=== PATIENT | female | born 1940 | race Caucasian/White ===

== ENCOUNTER 2016-10-02 07:00 | Inpatient (IN) ==
--- NOTE | 2016-10-02 07:46 | Oncology History&Physical ---
History of Present Illness Chief complaint: Intractable nausea and vomiting and probable recurrent colon cancer History of present illness: Ms. 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 She has been treated on more than one occasion because of progression of disease. She was initially treated with FOLFOX and Folfiri along with Avastin. She received 3 courses of FOLFOX followed by 9 courses of Folfiri plus Avastin and then was switched to Avastin as a single agent with the last of this series of chemotherapy treatments being October 16, 2013. She continued Avastin as a single agent until she developed progression. She had evidence of progressive disease that took some time to manifest and started back on chemotherapy again consisting of 3 courses of FOLFOX beginning in November 2015 and switching to Folfiri 4 5 courses that she finished February. I have been following her since that time and when I saw her in my office earlier this week she was having some nausea and increasing abdominal distention and anorexia and a sense of fullness. At the time of that examination, I was concerned that she had progression of disease again. She had recently had a CT of the abdomen and pelvis that was done September 17, 2016 and compared to the most recent one of June 18, 2015. It suggested that she had progression of disease again. The CT report mentioned minimal nodular opacities within the anterior aspect of the right upper lobe that were felt to be due to atelectasis. There was no evidence of liver metastases but the patient had ascites and prominence of the peritoneal lining suggesting carcinomatosis. There were distended loops of bowel but contrast was seen throughout the colon. My physical examination done a few days after that report were certainly worrisome for recurrence of the colon cancer. She is not been able to eat anything or drink any significant amount of liquids the last 3 days and so I am admitting her now, and I am ordering another CT but I am proceeding with Folfiri again because of the fact that it is fairly evident that she has progression of disease. I am getting the repeat CT scan as a baseline. She has had problems with hypokalemia while receiving treatment and also hypomagnesemia while on chemotherapy but she tolerated the Avastin fairly well and had no great deal of toxicity from it including no significant proteinuria. 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 Her mother also had cancer of unknown type. Social history: She is . She has never smoked. ROS Gen.: Eyes: No history of chronic disease, infections or visual loss. ENT: No history of chronic infections, epistaxis, chronic sore throat Lungs: No history of asthma, emphysema, hemoptysis, chronic pleurisy or long- term or chronic infections Cardiovascular: No history of angina, coronary artery disease, congestive heart failure, cardiovascular surgery or DVT/VTE GI: She is having bowel movements normally but she is had intractable nausea and vomiting for the past 72 hours or slightly more. No history of upper or lower GI bleeding, melena, dysphagia, odynophagia, liver disease, gallbladder disease or pancreatic disease. : No history of kidney stones, chronic kidney infections or hematuria. She is postmenopausal Musculoskeletal: No history of chronic bone or joint pain or focal muscle atrophy or bone or joint deformity. Neurologic: She has a history of peripheral neuropathy related to oxalic paimiut no history of seizures, convulsions or paralysis. Psychiatric: No history of chronic psychiatric illness or psychiatric medications. Lymphatic: No history of significant or long-term lymphadenopathy Hematologic: No history of anemia, bleeding disorders or blood dyscrasias or long-term elevation or depression white cell count or petechiae. Skin: No history of chronic skin infections or rashes or significant skin lesions. Physical examination: General: The patient is thin and somewhat frail appearing but actually does not appear as acutely ill as her history and my examination and the CAT scan indicate. Eyes: Normal lids and conjunctivae. ENT: Her hearing is normal. Her oral mucosa and pharynx are normal. Her voice is clear. Neck: Her trachea is midline and she has no abnormalities of the thyroid gland or neck masses. Nodes: There is no submandibular, anterior or posterior adenopathy of the cervical chain, axillary adenopathy or supraclavicular adenopathy. Breasts: Normal by inspection and palpation Lungs: Normal breath sounds without rubs, rales or rhonchi. There is symmetrical unlabored chest motion with respiration. Cardiovascular: Her heart rhythm is regular without murmur, gallop or rub. There is no jugular venous distention, clubbing, cyanosis or edema. Abdomen: She has protuberance and fullness of her abdomen with apparent ascites and several palpable masses in the midline that could represent carcinomatosis. On comparing my examination to her CT, her loops of bowel are centered in the midline and this is probably what I am feeling. Musculoskeletal: There is no focal muscle atrophy or bone or joint deformity. Neurologic: Cranial nerves II through XII are intact. There are no focal neurologic deficits. Skin: I see no significant skin lesions or rashes. Impression: It is my impression that the patient once again has progression of her colon cancer and I am going to treat her with Folfiri and Cyramza this time. The dose of will be: Camptosar 250 mg IV daily 1 Leucovorin 600 mg IV day 1 5-FU 750 mg IV day 1 5-FU a total of 2000 mg IV over 42 hours Cyramza 400 mg IV on completion of 5-FU infusion. Secondary diagnoses include: Intractable nausea and vomiting secondary to recurrent colon cancer. Hypertensive cardiovascular disease Mild peripheral neuropathy GERD Osteoporosis Home Medications Medication Instructions Recorded Confirmed Type Cetirizine Tab [ZyrTEC Tab] 10 mg PO QAM 09/30/16 09/30/16 History Folic Acid/Mv,Iron,Min [One Daily 1 each PO QAM 09/30/16 09/30/16 History For Women Tablet] Glucosamine/D3/Boswellia Marilou 1 each PO QAM 09/30/16 09/30/16 History [Osteo Bi-Flex Tablet] Lisinopril 40 mg PO QAM 09/30/16 09/30/16 History Magnesium Oxide 400 mg PO BEDTIME 09/30/16 09/30/16 History Metoprolol Succinate 100 mg PO BEDTIME 09/30/16 09/30/16 History Ondansetron Odt Tab [Zofran Odt] 4 mg PO Q8H PRN #12 tablet 09/30/16 Rx Potassium Chloride 20 meq PO BID 09/30/16 09/30/16 History Pregabalin [Lyrica] 50 mg PO BEDTIME 09/30/16 09/30/16 History amLODIPine [Norvasc] 5 mg PO BEDTIME 09/30/16 09/30/16 History cloNIDine TAB [Catapres Tab] 0.1 mg PO BID 09/30/16 09/30/16 History Allergies Allergy/AdvReac Type Severity Reaction Status Date / Time Hydromorphone [From Dilaudid] AdvReac Severe Vomiting Verified 06/18/15 09:54 Medical,Surgical,& Family Hx - Medical History Gastrointestinal: History of: Gastrointestinal Cancer (adenocarcinoma) - Surgical History Abdominal Surgeries: Surgical HX of: Abdominal Surgery Reproductive Surgeries: Surgical HX of;: Hysterectomy - Social History Smoking Status: Never smoker Results - Labs CBC & BMP: 10/02/16 08:20
[2016-10-02] MEDS ORDERED: LOPERAMIDE 2 MG CAPSULE PO PRN ×3 (08:40→09:35)
[2016-10-02] MEDS ORDERED: ONDANSETRON 4 MG/2 ML VIAL IV PRN (08:40)
[2016-10-02] MEDS ORDERED: chlorproMAZINE INJ 50 MG in SODIUM CHLORIDE 0.9% 100 ML IV PRN (08:40)
[2016-10-02] MEDS ORDERED: ACETAMINOPHEN 325 MG TABLET PO PRN (08:40)
[2016-10-02] MEDS ORDERED: chlorproMAZINE 25 MG TABLET PO PRN (08:40)
[2016-10-02] MEDS ORDERED: guaiFENesin 200 MG/10 ML UDCUP PO PRN (08:40)
[2016-10-02] MEDS ORDERED: MYLANTA/LIDO VISC 2:1 300 ML BOTTLE SWISH/SPIT PRN (08:40)
[2016-10-02] MEDS ORDERED: MAGNESIUM HYDROXIDE SUSP 30 ML UDCUP PO PRN (08:40)
[2016-10-02] MEDS ORDERED: traMADol 50 MG TABLET PO PRN (08:40)
[2016-10-02] MEDS ORDERED: diphenhydrAMINE CAP 25 MG CAPSULE PO PRN (08:40)
[2016-10-02] MEDS ORDERED: LACTULOSE 20 GM/30 ML UDCUP PO PRN (08:40)
[2016-10-02] MEDS ORDERED: MYLANTA/LIDO VISC 2:1 300 ML BOTTLE SWISH/SWAL PRN (08:40)
[2016-10-02] MEDS ORDERED: BENZTROPINE 2 MG/2 ML AMP IV PRN (08:40)
[2016-10-02 08:55] LABS: Basophils % 0.3 % (0.0-0.8); Eosinophils # 0.1 10*3/uL (0.0-0.87); Eosinophils % 1.3 % (0.00-10.9); Hematocrit 33.5 VOL% (35.7-47.0); Immature Granulocytes % 0.4 %; Immature Granulocytes Absolute 0.04 #; Lymphocytes # 1.8 10*3/uL (1.4-4.0); Lymphocytes % 16.8 % (21.3-54.2); Mean Corpuscular HGB Conc 32.8 GM/DL (32-36); Mean Corpuscular Hemoglobin 31 PG (27-34); Mean Corpuscular Volume 93.1 FL (87-102); Mean Platelet Volume 9.5 FL (9.6-12.0); Monocytes # 0.8 10*3/uL (0.11-0.8); Monocytes % 7.2 % (1.7-12.7); Platelet Count 157 T/CUMM (130-400); Red Cell Distribution Width 16.3 % (9.3-17.3); White Blood Count 10.7 T/CUMM (4-12)
[2016-10-02 09:23] LABS: Albumin 2.5 G/DL (3.4-5.0); Bilirubin,Total 1.4 MG/DL (0.2-1.0); Calcium 8.5 MG/DL (8.5-10.1); Magnesium 1.8 MG/DL (1.8-2.4); Osmolality,Calculated 282.3 MOS/KG (273-304); Potassium 3.9 MMOL/L (3.5-5.1); Total Protein 5.4 G/DL (6.4-8.3); Uric Acid 4.2 MG/DL (2.6-6.0)
[2016-10-02] MEDS ORDERED: DICYCLOMINE 20 MG TABLET PO PRN (09:35)
[2016-10-02] MEDS ORDERED: POLYETHYLENE GLYCOL POWDER 17 GM PACK PO PRN (09:35)
[2016-10-02] MEDS ORDERED: GRANISETRON 1 MG/1 ML VIAL IV SCH (10:00)
[2016-10-02] MEDS: POTASSIUM GLUCONATE 500 MG TABLET PO SCH ×2 (10:27→21:16)
[2016-10-02] MEDS: MULTIVITAMIN (CENTRUM) TABLET PO SCH (10:27)
[2016-10-02] MEDS: CETIRIZINE 10 MG TABLET PO SCH (10:28)
[2016-10-02] MEDS: CYANOCOBALAMIN 500 MCG TABLET PO SCH (10:28)
[2016-10-02] MEDS: cloNIDine 0.1 MG TABLET PO SCH ×2 (10:28→21:16)
[2016-10-02] MEDS: CHOLECALCIFEROL 1,000 UNIT TABLET PO SCH (10:28)
[2016-10-02] MEDS: PANTOPRAZOLE 40 MG TABLET PO SCH (10:28)
[2016-10-02 10:42] LABS: Cancer Antigen 19-9 23.3 U/ML (0-37); Carcinoembryonic Antigen 5.4 NG/ML (0.0-5.0)
--- NOTE | 2016-10-02 11:02 | CT Report ---
CT chest abdomen pelvis w con Indication: Nausea and vomiting. History of recurrent colon cancer. Comparison: None. Technique: CT of the chest, abdomen, and pelvis was performed following the administration of intravenous contrast. The CT examination was performed using one or more of the following dose reduction techniques: Automatic exposure control, adjustment of the mA and kV according to patient size, or iterative reconstruction techniques. Findings: CHEST: Soft tissues of the lower neck including the thyroid gland demonstrate no significant abnormalities. Fusiform enlargement of the ascending aorta measures 4.1 cm in transverse dimension. 3 vessel arch anatomy is present. The heart size is normal. The esophagus demonstrates no significant abnormality. No adenopathy is noted within the axilla. Right hilar lymph nodes measure 8.8 mm in short axis dimension. Peribronchial soft tissue attenuation within the right lower lobe image 67 is noted within the right lower lobe measuring 2.3 cm in AP dimension and 1.9 cm in transverse dimension. This tracks along the bronchi and extends into the major fissure possibly crossing the major fissure into the right middle lobe. Additional areas of soft tissue attenuation/airspace attenuation noted centrally within the right middle lobe adjacent the lateral subsegmental bronchi. These areas have developed since the comparison study. Additional groundglass attenuation and coarsened interstitial markings are noted within the right lower lobe which may in part reflect atelectasis. Infectious process is not excluded. Noncalcified pulmonary nodule left upper lobe image #33 measures 2 to 3 mm in size and has no change. Some nodular airspace attenuation is located within the right upper lobe image #33. Trace pleural effusion is present on the right. Bony structure of the chest demonstrates no acute findings as well as no specific evidence of osseous metastatic disease. Soft tissues and musculature of the chest wall demonstrate no significant abnormalities. ABDOMEN/PELVIS: A large amount of ascites is noted within the abdomen. Overall amount has probably changed little since comparison study. Gallbladder is contracted and/or demonstrates diffuse wall thickening which is a nonspecific finding in the setting of ascites. The appearance of the liver, spleen, pancreas, adrenal glands, and kidneys is stable. Stomach and duodenum demonstrated no specific abnormality. Within the right lower quadrant adjacent suture line, image #170, there is a rounded focus of mixed attenuation slightly higher in attenuation than the adjacent anterior fluid collection/ascites collection which abuts the margin. This has suggested enhancement of serosa and mucosa in the delayed phase and suggest possible segment of bowel in which there is bowel wall thickening measuring up to 12.8 mm. This particular segment of bowel when compared to the previous study appears to represent large bowel. The anterior serosal surface of this bowel segment forms the posterior boundary of one of the larger fluid collections within the abdomen. Intrapelvic contents with exception of hysterectomy demonstrate no significant abnormality. No adenopathy is identified within the abdomen and pelvis. Bony structure of the lumbar spine and pelvis demonstrate no acute findings. No specific evidence of osseous metastatic disease is demonstrated. Soft tissues and musculature of the body wall demonstrate no acute findings. No enhancing peritoneal masses can be identified. Impression: 1.A large amount of ascites is again demonstrated. There is a possible focal to short segment of bowel wall thickening within the lower right abdomen adjacent what appears to represent suture line in which the bowel wall could measure up to 13 mm. This particular segment could simply reflect fluid-filled nonopacified bowel, but there does appear to be both mucosal enhancement and serosal enhancement in the delayed phase, suggesting bowel wall thickening. 2. Airspace attenuation and/or soft tissue attenuation within the right lower lobe and right middle lobe has differential considerations including infection with focal consolidation, metastatic disease, follow-up is recommended. 3. Trace pleural effusion is noted on the right. 4. Findings compatible with prior granulomatous disease. 10/02/2016 10:45 AM PROCEDURE INTERPRETED AT [facility] DEPARTMENT OF RADIOLOG[facility] Final Report Signed by: Dr. Derek Zuleta
[2016-10-02] MEDS: DEXT 5% NACL 0.45% KCL 20 MEQ 20 MEQ/1,000 ML BAG IV SCH ×2 (11:08→19:10)
[2016-10-02 11:45] LABS: Apearance,Urine Slightly Hazy (Clear); Bilirubin,Urine Negative (Negative); Blood, Urine Negative (Negative); Glucose,Urine (UA) Negative (Negative); Ketones,Urine 5 mg/dL (Negative); Mucus,Urine Occasional /LPF (Occasional); Nitrite,Urine Negative (Negative); Protein,Urine Negative; RBC,Urine 1 /HPF (0-4); Squamous Epithelial Cell,Urine Occasional /HPF (0-10); Urine Color Amber (Yellow); Urine Specific Gravity 1.031 (1.001-1.035); WBC,Urine 3 /HPF (0-6)
[2016-10-02] MEDS ORDERED: METOPROLOL SUCCINATE XL 100 MG TABLET PO SCH (21:00)
[2016-10-02] MEDS: PREGABALIN 50 MG CAPSULE PO SCH (21:11)
[2016-10-02] MEDS: MAGNESIUM OXIDE 400 MG TABLET PO SCH (21:16)
[2016-10-02] MEDS: amLODIPine 5 MG TABLET PO SCH (21:16)
[2016-10-03] MEDS ORDERED: DEXAMETHASONE INJ 20 MG in SODIUM CHLORIDE 0.9% 50 ML IV ONE (09:00)
[2016-10-03] MEDS ORDERED: ATROPINE 0.4 MG/1 ML VIAL IV ONE (09:00)
[2016-10-03] MEDS ORDERED: IRINOTECAN 250 MG in DEXTROSE 5% 250 ML IV ONE (09:30)
[2016-10-03] MEDS ORDERED: LEUCOVORIN INJ 600 MG in DEXTROSE 5% 250 ML IV ONE (09:30)
[2016-10-03] MEDS: CYANOCOBALAMIN 500 MCG TABLET PO SCH (09:51)
[2016-10-03] MEDS: CHOLECALCIFEROL 1,000 UNIT TABLET PO SCH (09:52)
[2016-10-03] MEDS: cloNIDine 0.1 MG TABLET PO SCH ×2 (09:52→22:13)
[2016-10-03] MEDS: CETIRIZINE 10 MG TABLET PO SCH (09:52)
[2016-10-03] MEDS: MULTIVITAMIN (CENTRUM) TABLET PO SCH (09:52)
[2016-10-03] MEDS: PREGABALIN 50 MG CAPSULE PO SCH ×2 (09:53→22:13)
[2016-10-03] MEDS: PANTOPRAZOLE 40 MG TABLET PO SCH (09:55)
[2016-10-03] MEDS: DEXT 5% NACL 0.45% KCL 20 MEQ 20 MEQ/1,000 ML BAG IV SCH ×2 (10:27→11:03)
[2016-10-03] MEDS: POTASSIUM GLUCONATE 500 MG TABLET PO SCH ×2 (10:31→22:03)
[2016-10-03] MEDS: GRANISETRON 1 MG/1 ML VIAL IV SCH (10:57)
[2016-10-03] MEDS ORDERED: FLUOROURACIL IV ONE (11:30)
--- NOTE | 2016-10-03 12:29 | Oncology Progress Note ---
Assessment and Plan (1) History of colon cancer Status: Acute Assessment and plan: 76 year old female with PMHx of colon adenocarcinoma and HTN admitted on with nausea, vomiting, and abdominal distention. - symptomatic disease with ascites - re-intiated on FOLFIRI on 10/03. - continue with chemotherapy Current Visit: No (2) Vomiting Status: Acute Assessment and plan: likely related to ascites and abdominal fullness -no signs of obstruction - will continue to monitor and if symptoms not improved with chemotherapy patient may benefit from an EGD - supportive care - IVF Current Visit: No (3) Hypertension Status: Acute Assessment and plan: will hold metoprolol for low BPs and HRs - continue with norvasc and clonidine for now Current Visit: Yes Oncology Subjective PN Interval history: 76 year old female with PMHx of colon adenocarcinoma and HTN admitted on with nausea, vomiting, and abdominal distention felt secondary to progression of disease. Patient re-intiated on FOLFIRI on 10/03. Per patient has tolerated well in the past with minimal side effects such as fatigue. States has had difficulty with swallowing solids for last couple months with associated vomiting. Patient able to tolerate liquids. Patient has had significant weight loss as a result. No pain at the moment. No fevers. Exam - Constitutional Vitals: Period Temp Pulse Resp BP Sys/Carrion Pulse Ox Last 24 Hr 97.2 F-98.2 F 48-59 12-22 108-163/58-79 92-95 General appearance: no acute distress - Eye Eye Exam: Present: EOMI - Respiratory Respiratory exam: Present: CTAB - Cardiovascular Cardiovascular exam: Present: RRR - GI/Abdominal GI/Abdominal exam: Present: ascites, distended. Absent: mass, tenderness - Extremities Exam Extremities exam: Absent: edema - Neurological Exam Neurological exam: Present: alert, oriented X3 - Psychiatric Psychiatric exam: Present: normal affect - Skin Skin exam: Present: warm Results - Labs CBC & BMP: 10/02/16 08:20 10/02/16 08:20
[2016-10-03] MEDS: FLUOROURACIL IV SCH (14:13)
[2016-10-03] MEDS: SODIUM CHLORIDE 0.9% IV SCH (14:13)
[2016-10-03] MEDS: SODIUM CHLORIDE 0.45% 1,000 ML IV SCH (14:27)
[2016-10-03] MEDS: PROMETHAZINE INJ 25 MG in SODIUM CHLORIDE 0.9% 50 ML IV PRN (21:55)
[2016-10-03] MEDS: MAGNESIUM OXIDE 400 MG TABLET PO SCH (22:03)
[2016-10-03] MEDS: amLODIPine 5 MG TABLET PO SCH (22:13)
[2016-10-04] MEDS: ONDANSETRON ODT 4 MG TABLET PO PRN (04:57)
[2016-10-04 05:09] LABS: Basophils % 0.1 % (0.0-0.8); Eosinophils % 0.2 % (0.00-10.9); Hematocrit 40.1 VOL% (35.7-47.0); Immature Granulocytes % 0.3 %; Immature Granulocytes Absolute 0.03 #; Lymphocytes # 3.1 10*3/uL (1.4-4.0); Lymphocytes % 26.7 % (21.3-54.2); Mean Corpuscular HGB Conc 32.4 GM/DL (32-36); Mean Corpuscular Hemoglobin 30 PG (27-34); Mean Corpuscular Volume 91.3 FL (87-102); Mean Platelet Volume 9.3 FL (9.6-12.0); Monocytes % 9.1 % (1.7-12.7); Neutrophils # 7.3 10*3/uL (1.4-7.4); Neutrophils % 63.6 % (38.7-73.9); Platelet Count 223 T/CUMM (130-400); Red Blood Count 4.39 MC/CUMM (3.8-5.5); White Blood Count 11.5 T/CUMM (4-12)
[2016-10-04 05:55] LABS: Albumin 2.7 G/DL (3.4-5.0); Bilirubin,Total 0.8 MG/DL (0.2-1.0); Calcium 8.9 MG/DL (8.5-10.1); Total Protein 6.1 G/DL (6.4-8.3)
[2016-10-04 05:56] LABS: Osmolality,Calculated 282.1 MOS/KG (273-304); Potassium 4.2 MMOL/L (3.5-5.1)
[2016-10-04] MEDS: PROMETHAZINE INJ 25 MG in SODIUM CHLORIDE 0.9% 50 ML IV PRN ×2 (06:51→14:04)
[2016-10-04] MEDS: PANTOPRAZOLE 40 MG TABLET PO SCH (09:05)
[2016-10-04] MEDS: CETIRIZINE 10 MG TABLET PO SCH (09:05)
[2016-10-04] MEDS: GRANISETRON 1 MG/1 ML VIAL IV SCH (09:06)
[2016-10-04] MEDS ORDERED: FOSAPREPITANT 150 MG in SODIUM CHLORIDE 0.9% 100 ML IV ONE (11:00)
--- NOTE | 2016-10-04 11:38 | XRay Report ---
XR KUB Clinical Information: Abdominal Pain history of colon cancer Comparison: None Findings: Bowel gas pattern is nonspecific and within normal limits. No abnormally dilated small bowel loops are identified to suggest obstruction. There is no free air identified. Scattered fecal material is noted throughout colon, which is otherwise nondilated. No abnormal focal soft tissue masses or calcific densities are identified in the abdomen or pelvis. Lung bases appear predominantly clear. There is no acute osseous abnormality. No suspicious osseous lesions are identified. Impression: No acute radiographic abnormality in the abdomen. A mild degree of fecal stasis/constipation is suspected. PROCEDURE INTERPRETED AT [facility] DEPARTMENT OF RADIOLOGY Final Report Signed by: David Coffey
[2016-10-04] MEDS: SODIUM CHLORIDE 0.9% 1,000 ML IV SCH (11:53)
--- NOTE | 2016-10-04 12:20 | Oncology Progress Note ---
Assessment and Plan (1) History of colon cancer Status: Acute Assessment and plan: - symptomatic disease with ascites - started FOLFIRI on 10/03 but held for N/V/D - discussed with patient likely symptoms were from irinotecan - repeat KUB with no evidence of obstruction - will start NS @ 75 cc/hr - checking a C diff - will plan on trial restarting 5FU at 50% rate to see if patient tolerates. patient agreeable - emend, promethazine and decadron 10 mg given as pre-meds Current Visit: No (2) Vomiting Status: Acute Assessment and plan: likely related to ascites and abdominal fullness -no signs of obstruction on CT nor KUB - will continue to monitor and if symptoms not improved with chemotherapy patient may benefit from an EGD - supportive care. addition of emend and additional dose of decadron today - IVF - advised clear liquid diet for now with increase to softs as tolerated Current Visit: No (3) Hypertension Status: Acute Assessment and plan: will hold metoprolol for low BPs and HRs - continue with norvasc and clonidine for now Current Visit: Yes Oncology Subjective PN Interval history: 76 year old female with PMHx of colon adenocarcinoma and HTN admitted on with nausea, vomiting, and abdominal distention. CT CAP suggestive of ascited without evidence of obstruction. Patient initiated on chemotherapy for likely POD with FOLFIRI. Chemotherapy held overnight per patients wishes secondary to worsening of nausea, vomiting, and new onset watery diarrhea. Since holding chemotherapy patient states she feels better but still unable to tolerate PO. No fevers. No abdominal pain. Per patient abdominal distention decreased and softer. No SOB. Exam - Constitutional Vitals: Period Temp Pulse Resp BP Sys/Carrion Pulse Ox Last 24 Hr 97 F-97.9 F 73-98 16-20 116-165/67-83 94-96 General appearance: no acute distress, cachectic, other (chronic ill appearance) - Eye Eye Exam: Present: EOMI - Respiratory Respiratory exam: Present: CTAB - Cardiovascular Cardiovascular exam: Present: RRR - GI/Abdominal GI/Abdominal exam: Present: ascites, distended, mass (palpable mass in suprapubic area), tenderness (diffuse tenderness with no guarding) - Extremities Exam Extremities exam: Absent: edema - Neurological Exam Neurological exam: Present: alert, oriented X3 - Psychiatric Psychiatric exam: Present: normal affect - Skin Skin exam: Present: warm Results - Labs CBC & BMP: 10/04/16 04:20 10/04/16 04:20
[2016-10-04] MEDS ORDERED: DEXAMETHASONE 10 MG/1 ML VIAL IV ONE (12:24)
[2016-10-04] MEDS: MULTIVITAMIN (CENTRUM) TABLET PO SCH (13:36)
[2016-10-04] MEDS: cloNIDine 0.1 MG TABLET PO SCH ×2 (13:36→21:37)
[2016-10-04] MEDS: PREGABALIN 50 MG CAPSULE PO SCH ×2 (13:36→21:37)
[2016-10-04] MEDS: CYANOCOBALAMIN 500 MCG TABLET PO SCH (13:37)
[2016-10-04] MEDS: POTASSIUM GLUCONATE 500 MG TABLET PO SCH ×2 (13:37→21:38)
[2016-10-04] MEDS: CHOLECALCIFEROL 1,000 UNIT TABLET PO SCH (13:38)
[2016-10-04] MEDS ORDERED: SODIUM PHOSPHATE ENEMA 133 ML BOTTLE RECTAL PRN (13:58)
[2016-10-04] MEDS: SODIUM CHLORIDE 0.45% 1,000 ML IV SCH (16:06)
[2016-10-04] MEDS: FLUOROURACIL IV SCH (16:07)
[2016-10-04] MEDS: SODIUM CHLORIDE 0.9% IV SCH (16:07)
[2016-10-04] MEDS: chlorproMAZINE INJ 25 MG in SODIUM CHLORIDE 0.9% 100 ML IV PRN (18:04)
[2016-10-04] MEDS: MAGNESIUM OXIDE 400 MG TABLET PO SCH (21:37)
[2016-10-04] MEDS: amLODIPine 5 MG TABLET PO SCH (21:38)
[2016-10-05] MEDS: chlorproMAZINE INJ 25 MG in SODIUM CHLORIDE 0.9% 100 ML IV PRN (00:18)
--- NOTE | 2016-10-05 06:47 | XRay Report ---
History: Nasogastric tube placement. Vomiting. History of colon cancer Date: 10/04/2016 Study: Chest x-ray AP portable Comparison exam: February 07, 2012 chest x-ray The nasogastric tube is positioned with its tip overlying the mid stomach body level. A right subclavian Mediport-type catheter is well positioned with its tip over the atriocaval junction. There is no gross pulmonary infiltrate, though the exam was performed with dark technique, limiting evaluation. There is no gross pleural effusion. There is no cardiomegaly or obvious mediastinal mass. Impression: Nasogastric tube is well-positioned PROCEDURE INTERPRETED AT [facility] DEPARTMENT OF RADIOLOGY Final Report Signed by: Dr. Danielle Church
--- NOTE | 2016-10-05 07:55 | XRay Report ---
Referring Physician: Simeon Max Exam: XR KUB Date: October 05, 2016 at 7:02 AM Reason: Intractable nausea and vomiting, evaluate for bowel obstruction Comparison: KUB October 04, 2016 Findings: There is a partially visualized central venous catheter at the SVC/right atrial junction. A feeding tube is also in place with its distal tip curled upward near the gastroesophageal junction. There is mild air within the colon but no evidence of bowel obstruction. No free air is identified. There is diffuse haziness at the abdomen, which is suspected to represent ascites. The osseous structures appear stable. Impression: There is mild air within the colon but no evidence of bowel obstruction. Ascites is suspected. PROCEDURE INTERPRETED AT [facility] DEPARTMENT OF RADIOLOGY Final Report Signed by: Dr. Albert Coleman
[2016-10-05] MEDS ORDERED: DEXTROSE 5% IV ONE (08:43)
[2016-10-05] MEDS ORDERED: LEUCOVORIN IV ONE (08:43)
--- NOTE | 2016-10-05 08:48 | Oncology Progress Note ---
Oncology Subjective PN Interval history: Ms. 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 She has been treated on more than one occasion because of progression of disease. She was initially treated with FOLFOX and Folfiri along with Avastin. She received 3 courses of FOLFOX followed by 9 courses of Folfiri plus Avastin and then was switched to Avastin as a single agent with the last of this series of chemotherapy treatments being October 16, 2013. She continued Avastin as a single agent until she developed progression. She had evidence of progressive disease that took some time to manifest and started back on chemotherapy again consisting of 3 courses of FOLFOX beginning in November 2015 and switching to Folfiri 4 5 courses that she finished February. I have been following her since that time and when I saw her in my office earlier this week she was having some nausea and increasing abdominal distention and anorexia and a sense of fullness. At the time of that examination, I was concerned that she had progression of disease again. She had recently had a CT of the abdomen and pelvis that was done September 17, 2016 and compared to the most recent one of June 18, 2015. It suggested that she had progression of disease again. This is the reason I admitted her and proceeded with Folfiri again at this time. I also was planning to give her Cyramza. She had a repeat CT of the abdomen and pelvis done on this admission still does not demonstrate bowel obstruction. In addition, x-rays done today of her abdomen did not suggest bowel obstruction. Ms. Francisco had nausea and vomiting and diarrhea when we started her chemotherapy. She refused to continue it but she received all of the Camptosar , all of the leucovorin and only 500 mg of fluorouracil. At that point she had nausea, vomiting and diarrhea and bagged to have the rest of the 5-FU infusion discontinued. I have discussed this with her and I am finishing up the 5-FU infusion. I am going to give her leucovorin 400 mg IV followed by 5-FU 1200 mg IV over 22 hours. I am not surprised that she had nausea, vomiting and diarrhea as a side effect of the Camptosar. She has had problems with it before. Her nausea and vomiting have improved. Her abdomen has gone down. I am still considering Cyramza but I will not make a decision until tomorrow. Exam - Constitutional Vitals: Period Temp Pulse Resp BP Sys/Carrion Pulse Ox Last 24 Hr 97.5 F-98.3 F 72-124 16-20 139-161/75-89 91-96 Results - Labs CBC & BMP: 10/04/16 04:20 10/04/16 04:20
[2016-10-05] MEDS ORDERED: FLUOROURACIL 1,200 MG in SODIUM CHLORIDE 0.9% 1,000 ML IV SCH (09:00)
[2016-10-05] MEDS: GRANISETRON 1 MG/1 ML VIAL IV SCH (10:34)
[2016-10-05] MEDS: CETIRIZINE 10 MG TABLET PO SCH (10:36)
[2016-10-05] MEDS: cloNIDine 0.1 MG TABLET PO SCH ×2 (10:36→21:00)
[2016-10-05] MEDS: CYANOCOBALAMIN 500 MCG TABLET PO SCH (10:36)
[2016-10-05] MEDS: PANTOPRAZOLE 40 MG TABLET PO SCH (10:37)
[2016-10-05] MEDS: MULTIVITAMIN (CENTRUM) TABLET PO SCH (10:37)
[2016-10-05] MEDS: POTASSIUM GLUCONATE 500 MG TABLET PO SCH ×2 (10:37→21:03)
[2016-10-05] MEDS: PREGABALIN 50 MG CAPSULE PO SCH ×2 (10:37→21:00)
[2016-10-05] MEDS: CHOLECALCIFEROL 1,000 UNIT TABLET PO SCH (13:40)
[2016-10-05] MEDS: DEXAMETHASONE 4 MG/1 ML VIAL IV SCH (14:49)
[2016-10-05] MEDS: amLODIPine 5 MG TABLET PO SCH (21:00)
[2016-10-05] MEDS: MAGNESIUM OXIDE 400 MG TABLET PO SCH (21:03)
--- NOTE | 2016-10-06 07:19 | Oncology Progress Note ---
Oncology Subjective PN Interval history: We are finally completing palliative chemotherapy on Ms. Francisco for this course with the exception of the Cyramza which I am considering giving tomorrow. She has improved. Her abdomen is no longer distended. She is having bowel movements. We clamped her NG tube and she has had no nausea or vomiting. Therefore, we are discontinuing the NG tube at this point is starting her on clear liquids and advancing the diet as tolerated. She is fully oriented and alert. Her abdomen is no longer protuberant or distended and there is no tenderness. I have explained to her once again that adding Cyramza is risky just as adding Avastin was. My opinion is that the Avastin has quit working and this is the reason to switch to Cyramza. Exam - Constitutional Vitals: Period Temp Pulse Resp BP Sys/Carrion Pulse Ox Last 24 Hr 97.5 F-99.1 F 67-113 18-20 115-163/63-90 91-98 Results - Labs CBC & BMP: 10/04/16 04:20 10/04/16 04:20
[2016-10-06] MEDS: DEXAMETHASONE 4 MG/1 ML VIAL IV SCH (09:38)
[2016-10-06] MEDS: GRANISETRON 1 MG/1 ML VIAL IV SCH (09:39)
[2016-10-06] MEDS: CHOLECALCIFEROL 1,000 UNIT TABLET PO SCH (09:40)
[2016-10-06] MEDS: POTASSIUM GLUCONATE 500 MG TABLET PO SCH ×2 (09:41→21:00)
[2016-10-06] MEDS: MULTIVITAMIN (CENTRUM) TABLET PO SCH (09:41)
[2016-10-06] MEDS: PANTOPRAZOLE 40 MG TABLET PO SCH (09:41)
[2016-10-06] MEDS: PREGABALIN 50 MG CAPSULE PO SCH ×2 (09:41→21:01)
[2016-10-06] MEDS: CETIRIZINE 10 MG TABLET PO SCH (09:41)
[2016-10-06] MEDS: cloNIDine 0.1 MG TABLET PO SCH ×2 (09:42→21:58)
[2016-10-06] MEDS: CYANOCOBALAMIN 500 MCG TABLET PO SCH (09:44)
[2016-10-06] MEDS: MAGNESIUM OXIDE 400 MG TABLET PO SCH (21:00)
[2016-10-06] MEDS: amLODIPine 5 MG TABLET PO SCH (21:58)
[2016-10-07] MEDS: ALUMINUM/MAGNES/SIMETH MAX STR 30 ML UDCUP PO PRN (05:56)
--- NOTE | 2016-10-07 07:57 | Oncology Progress Note ---
Oncology Subjective PN Interval history: Ms. 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 She has been treated on more than one occasion because of progression of disease. She was initially treated with FOLFOX and Folfiri along with Avastin. She received 3 courses of FOLFOX followed by 9 courses of Folfiri plus Avastin and then was switched to Avastin as a single agent with the last of this series of chemotherapy treatments being October 16, 2013. She continued Avastin as a single agent until she developed progression. She had evidence of progressive disease that took some time to manifest and started back on chemotherapy again consisting of 3 courses of FOLFOX beginning in November 2015 and switching to Folfiri 4 5 courses that she finished February. I have been following her since that time and when I saw her in my office earlier this week she was having some nausea and increasing abdominal distention and anorexia and a sense of fullness. At the time of that examination, I was concerned that she had progression of disease again. She had recently had a CT of the abdomen and pelvis that was done September 17, 2016 and compared to the most recent one of June 18, 2015. It suggested that she had progression of disease again. This is the reason I admitted her and proceeded with Folfiri again at this time. I also was planning to give her Cyramza but those plans are on hold for now. Ms. Francisco was admitted with metastatic colon cancer. Although she did not have bowel obstruction I think she was about to develop it. We have treated her with Folfiri now and was going to proceed with Cyramza today. However, she is having severe dysphagia and I am starting her on Carafate and changing her Protonix to twice daily intravenously. On consulting gastroenterology. She has not seen a insurance instructor here. When she was admitted she had abdominal distention and nausea that have cleared but the dysphagia is still keeping her from swallowing. She is describing esophageal reflux. She is emaciated and cachectic. She is acutely ill. However, it appears that her colon cancer has already responded to chemotherapy. On physical examination her respirations are unlabored. She is oriented and alert. Her abdomen is no longer protuberant. Her oral mucosa appears normal. There is nothing to suggest monilia but I am going to start Diflucan empirically. Exam - Constitutional Vitals: Period Temp Pulse Resp BP Sys/Carrion Pulse Ox Last 24 Hr 97.3 F-98.7 F 70-108 16-20 135-149/77-89 92-96 Results - Labs CBC & BMP: 10/04/16 04:20 10/04/16 04:20
[2016-10-07] MEDS: DEXAMETHASONE 4 MG/1 ML VIAL IV SCH (08:59)
[2016-10-07] MEDS: GRANISETRON 1 MG/1 ML VIAL IV SCH (08:59)
[2016-10-07] MEDS: PANTOPRAZOLE 40 MG VIAL IV SCH ×2 (08:59→21:21)
[2016-10-07] MEDS: FLUCONAZOLE INJ 100 MG in IV BAG 1 EACH IV SCH (11:52)
[2016-10-07] MEDS: cloNIDine 0.1 MG TABLET PO SCH ×2 (12:00→20:51)
[2016-10-07] MEDS: MULTIVITAMIN (CENTRUM) TABLET PO SCH (12:00)
[2016-10-07] MEDS: PREGABALIN 50 MG CAPSULE PO SCH ×3 (12:01→21:23)
[2016-10-07] MEDS: POTASSIUM GLUCONATE 500 MG TABLET PO SCH ×2 (12:01→20:52)
[2016-10-07] MEDS: SUCRALFATE 1 GM/10 ML UDCUP PO SCH ×3 (12:01→20:51)
[2016-10-07] MEDS: CYANOCOBALAMIN 500 MCG TABLET PO SCH (12:01)
[2016-10-07] MEDS: CHOLECALCIFEROL 1,000 UNIT TABLET PO SCH (12:01)
[2016-10-07] MEDS: CETIRIZINE 10 MG TABLET PO SCH (12:01)
[2016-10-07] MEDS: SODIUM CHLORIDE 0.9% 1,000 ML IV SCH ×2 (13:55→13:56)
[2016-10-07] MEDS: ONDANSETRON ODT 4 MG TABLET PO PRN (15:06)
[2016-10-07] MEDS: PROMETHAZINE INJ 25 MG in SODIUM CHLORIDE 0.9% 50 ML IV PRN (17:04)
--- NOTE | 2016-10-07 19:42 | Gastrointestinal Consult Note ---
Assessment and Plan (1) Pharyngoesophageal dysphagia Status: Acute Assessment and plan: This patient has been evaluated by Dr. Chetan Whitfield in the past and underwent upper endoscopy with dilation 2 years ago. She states that this did improve her swallowing for some time afterwards. I remain dubious that this patient will have a stricture, it is equally likely that she may have severe erosive esophagitis or fungal esophagitis producing some of the symptoms that she is experiencing. Upper endoscopy is scheduled for tomorrow. I agree with use of Protonix IV twice daily for good acid suppression. Current Visit: Yes (2) Nausea and vomiting Status: Acute Assessment and plan: The patient may have some element of gastroparesis present and would likely benefit from use of Reglan. Will discontinue the Compazine as these 2 together can certainly produce a high risk for neuroleptic malignant syndrome, will try the IV Reglan and see if she has intolerable side effects. I will look during the endoscopy and see if the patient has evidence of gastroparesis as well. Current Visit: Yes (3) History of colon cancer Status: Acute Assessment and plan: At some point we might consider doing a repeat colonoscopy should the patient go back into remission again. She may prefer to do this with Dr. Whitfield's office Current Visit: No History of Present Illness Chief complaint: Nausea, vomiting, esophageal stricture, abnormal weight loss, CRC History of present illness: Ms. Francisco is a 76 year old female who is very pleasant and had initially been diagnosed as having colon cancer coming from her appendix in March [address] Chetan Whitfield over at [place]. This was found to be stage IV and was referred over to Dr. Deshpande for chemotherapy. She appeared to have an initial excellent response completing her chemotherapy by October 2013, but ended up getting a recurrence in November 2015 and was treated with another 5 courses of Folfiri which was completed in late February 2016. The patient has had nausea and increasing abdominal distention with anorexia and worsening ability to swallow for the last 3-4 months. She states to me that she had undergone previous dilation of her esophagus done by Dr. Whitfield approximately 2 years ago. She feels nausea constantly and a fair amount of bloating. She feels that about 3 bites of food is her limit and would like to have her esophagus stretched again to help with her food ingestion. Unfortunately recent CT scan done on 09/17/16 shows regression of her disease once again and the patient is undergoing chemotherapy during this admission (5-FU/Cyramza/Folflri) I am consulted to see if a dilation will help out with her ability to tolerate food and to see whether or not other causes of her nausea and vomiting can be identified (i.e. esophagitis or possibly gastroparesis). Patient states that she is not taking much pain medication. She states that from her original colonoscopy she has not a second check. She states that her initial surgery only removed the cecum and some cancerous omentum. She states that over the last 4 months she is lost approximately 40 pounds. She does have severe reflux which has not been controlled despite the Nexium. Her bowel movements have been remarkably regular when she can eat--no bright red blood per rectum or black tarry bowel movements been seen. The patient has not had any hematemesis. Home Medications Medication Instructions Recorded Confirmed Type Cetirizine Tab [ZyrTEC Tab] 10 mg PO QAM 09/30/16 10/02/16 History Lisinopril 40 mg PO QAM 09/30/16 10/02/16 History Magnesium Oxide 400 mg PO DAILY 09/30/16 10/02/16 History Metoprolol Succinate 100 mg PO BID 09/30/16 10/02/16 History Pregabalin [Lyrica] 50 mg PO BID 09/30/16 10/02/16 History amLODIPine [Norvasc] 5 mg PO BEDTIME 09/30/16 10/02/16 History cloNIDine TAB [Catapres Tab] 0.1 mg PO BID 09/30/16 10/02/16 History Cholecalciferol (Vitamin D3) 5,000 unit PO DAILY 10/02/16 10/02/16 History [Vitamin D3] Cyanocobalamin (Vitamin B-12) 1,000 mcg PO DAILY 10/02/16 10/02/16 History [Vitamin B-12] Dicyclomine Cap/Tab [Bentyl 20 mg PO QID PRN 10/02/16 10/02/16 History Cap/Tab] Esomeprazole Magnesium [Nexium] 20 mg PO DAILY 10/02/16 10/02/16 History Folic Acid/Mv,Iron,Min [One Daily 1 each PO DAILY 10/02/16 10/02/16 History For Women Tablet] Gluc/Javier-MSM#1/C/Anil/Mitchell/Bor 1 each PO DAILY 10/02/16 10/02/16 History [Osteo Bi-Flex Caplet] Loperamide Cap [Imodium Cap] 2 mg PO Q4HR PRN 10/02/16 10/02/16 History Ondansetron Odt Tab [Zofran Odt] 4 mg PO Q8H PRN 10/02/16 10/02/16 History Polyethylene Glycol Powder 17 gm PO DAILY PRN 10/02/16 10/02/16 History [Miralax] Potassium 99 mg PO BID 10/02/16 10/02/16 History Prochlorperazine Tab [Compazine 10 mg PO Q4H PRN 10/02/16 10/02/16 History Tab] Allergies Allergy/AdvReac Type Severity Reaction Status Date / Time Hydromorphone [From Dilaudid] AdvReac Severe Vomiting Verified 06/18/15 09:54 Medical,Surgical,& Family Hx - Medical History Cardio: History of: Hypertension Gastrointestinal: History of: Gastrointestinal Cancer (adenocarcinoma) - Surgical History Abdominal Surgeries: Surgical HX of: Abdominal Surgery Reproductive Surgeries: Surgical HX of;: Hysterectomy - Social History Smoking Status: Never smoker Review of systems: Constitutional: Denies fever, chills, but positive for nausea, and vomiting Eyes: Denies dry eyes, and scleral icterus HENT: History of occasional headaches Cardiovascular: Some acute chest pain but no claudication Respiratory: Denies shortness of breath, wheezing, and difficulty breathing, denies cough Gastrointestinal: As noted in the HPI Genitourinary: Denies dysuria and hematuria Neurologic: Denies vision loss, but some loss of sensation peripherally Musculoskeletal: The patient does have some joint swelling, joint stiffness, and muscular weakness Psychiatric: Mild depression but no bradley symptoms Heme-Lymph: She does have some easy bruising, but denies lymph node enlargement or tenderness, night sweats, excessive bleeding Allergies-immunologic: Denies pruritus and rhinorrhea Exam - Constitutional Vitals: Period Temp Pulse Resp BP Sys/Carrion Pulse Ox Last 24 Hr 97.1 F-98.7 F 73-106 15-20 142-163/77-93 92-96 Exam: Constitutional: Well-developed, poorly-nourished white female, who is alert , and in no acute distress Head and face: Head: Normocephalic atraumatic Eyes: Conjunctiva without injection, no gross scleral icterus, pupils equal and round bilaterally, eyes appear somewhat sunken Ears: Intact to conversation in both ears Nose: External appearance is normal, nares patent Mouth: Oral mucous membranes moist without erythema dentition noted to be without erosion Neck: Normal appearance, no masses or tenderness, trachea midline Thyroid: Gland midline and appropriate size for age Respiratory: Normal respiratory effort, clear to auscultation without wheezes, rhonchi or rales Cardiovascular: Regular rate and rhythm, normal S1, S2, the exam is without rubs, murmurs or gallops. Gastrointestinal: The abdomen is distended with ascites with a slightly nodular feel underneath the skin suspicious for peritoneal carcinomatosis, this is slightly tense. There is a fair amount of tympany as well indicative low- grade ileus. No rectal exam obtained. Lymphatic: Neck without adenopathy, axilla without lymphadenopathy present Musculoskeletal: Right and left lower extremities with evidence of trace edema Skin and subcutaneous tissue: No rashes or ulcerations noted, normal skin turgor, digits and nails without clubbing/cyanosis/deformities. Neurologic: The patient is grossly oriented to person place and time, cranial nerves show tongue movements are normal with normal tongue extrusion midline, light touch sensation is intact. Psychiatric: No hallucinations or delusions are present, does not appear depressed Results - Labs CBC & BMP: 10/04/16 04:20 10/04/16 04:20
[2016-10-07] MEDS: MAGNESIUM OXIDE 400 MG TABLET PO SCH (20:52)
[2016-10-07] MEDS: amLODIPine 5 MG TABLET PO SCH ×2 (20:52→23:49)
[2016-10-07] MEDS: POLYETHYLENE GLYCOL POWDER 17 GM PACK PO SCH (21:25)
[2016-10-07] MEDS: METOCLOPRAMIDE 10 MG/2 ML VIAL IV SCH (23:48)
[2016-10-08] MEDS: SODIUM CHLORIDE 0.9% 1,000 ML IV SCH ×3 (03:19→23:48)
[2016-10-08] MEDS: METOCLOPRAMIDE 10 MG/2 ML VIAL IV SCH ×4 (06:28→23:50)
--- NOTE | 2016-10-08 07:00 | Oncology Progress Note ---
Oncology Subjective PN Interval history: Ms. Francisco has had EGD today and she has erosive gastritis. There was also compression of the stomach due to ascites. Dr. Gonzales has suggested paracentesis. I would like to get one eventually but I do not want to do it immediately after chemotherapy. In addition, I am considering the use of Cyramza which can cause bleeding. If I hold off on giving Cyramza, we may consider paracentesis in another day or 2 for the purposes of cytology. However , I think this patient has extensive adhesions which are going to make it more risky. She has refused IV fluids but I talked to her today. We are going to resume them. Ms. 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 She has been treated on more than one occasion because of progression of disease. She was initially treated with FOLFOX and Folfiri along with Avastin. She received 3 courses of FOLFOX followed by 9 courses of Folfiri plus Avastin and then was switched to Avastin as a single agent with the last of this series of chemotherapy treatments being October 16, 2013. She continued Avastin as a single agent until she developed progression. She had evidence of progressive disease that took some time to manifest and started back on chemotherapy again consisting of 3 courses of FOLFOX beginning in November 2015 and switching to Folfiri 4 5 courses that she finished February. I have been following her since that time and when I saw her in my office earlier this week she was having some nausea and increasing abdominal distention and anorexia and a sense of fullness. At the time of that examination, I was concerned that she had progression of disease again. She had recently had a CT of the abdomen and pelvis that was done September 17, 2016 and compared to the most recent one of June 18, 2015. It suggested that she had progression of disease again. This is the reason I admitted her and proceeded with Folfiri again at this time. I also was planning to give her Cyramza but those plans are on hold for now. Ms. Francisco was admitted with metastatic colon cancer. Although she did not have bowel obstruction I think she was about to develop it. We have treated her with Folfiri now and was going to proceed with Cyramza today. However, she is having severe dysphagia and I am starting her on Carafate and changing her Protonix to twice daily intravenously. Lab work during this admission includes a CEA level of 5.4 and a CA-19-9 of 23.3 on October 02, 2016. I am rechecking lab work. Her last CBC was October 04 and so was her last chemistry package. At that time her white cell count was 11,500 with a hemoglobin of 13.0 and a platelet count of 223,000. Her comprehensive metabolic profile demonstrated hypoalbuminemia. I have consulted gastroenterology. She has not seen a plant nursery worker here. Dr. Cevallos has seen her and she is scheduled for upper endoscopy. I appreciate his input. I agree that this could easily be erosive esophagitis or even monilial esophagitis as it could be a stricture. I had planned to treat her with Cyramza for further treatment of her colon cancer but I am putting this off. When she was admitted she had abdominal distention and nausea that have cleared but the dysphagia is still keeping her from swallowing. She is describing esophageal reflux. She is emaciated and cachectic. She is acutely ill. However, it appears that her colon cancer has already responded to chemotherapy. On physical examination her respirations are unlabored. She is oriented and alert. Her abdomen is no longer protuberant. Her oral mucosa appears normal. There is nothing to suggest monilia but I am going to start Diflucan empirically. Exam - Constitutional Vitals: Period Temp Pulse Resp BP Sys/Carrion Pulse Ox Last 24 Hr 97.1 F-98.4 F 83-106 15-20 148-170/85-96 92-98 Results - Labs CBC & BMP: 10/08/16 07:20 10/04/16 04:20
[2016-10-08] MEDS: SUCRALFATE 1 GM/10 ML UDCUP PO SCH ×4 (07:42→21:08)
[2016-10-08] MEDS ORDERED: PROPOFOL 200 MG/20 ML VIAL IV ONE (08:08)
[2016-10-08] MEDS ORDERED: ONDANSETRON 4 MG/2 ML VIAL ONE (08:08)
[2016-10-08] MEDS ORDERED: LIDOCAINE 2% 5 ML VIAL ONE (08:08)
[2016-10-08] MEDS ORDERED: LABETALOL 100 MG/20 ML VIAL IV ONE (08:08)
--- NOTE | 2016-10-08 08:27 | Operative Note ---
Date of procedure: 10/08/16 Pre-op diagnosis: Dysphagia, nausea/vomiting, abnormal weight loss Post-op diagnosis: other (Severe LA class D erosive esophagitis for 12 cm in the distal esophagus, because of dysphagia the patient was dilated to 57 Norwegian but I believe most of her difficulty with swallowing is likely due to the severe esophagitis. 7 cm hiatal hernia, diffuse gastritis with gastric compression due to external ascites.) Procedure: PROCEDURE: Esophagogastroduodenoscopy (EGD) with cold biopsy for pathology and dilation to 57 Norwegian by single pass Savary dilator REFERRING PHYSICIAN: Dr. Telly Deshpande MD INDICATIONS: Dysphagia, abnormal weight loss, nausea/vomiting in a patient who is getting treated for metastatic colorectal cancer the prior H&P was reviewed and interrim changes are as noted: No change from GI consultation yesterday ENDOSCOPIST: Victor Manuel Gonzales MD ENDOSCOPE: [employer] Video 100 System upper endoscope ASA CLASS: 3 EXAM: CV: regular rate and rhythm respiratory: Clear without wheezes abdominal: active bowel sounds MEDICATION: Per nursing anesthesia protocol, see their notes PROCEDURE: After discussion of the potential risks and benefits of upper endoscopy, the informed consent was obtained. The patient was then placed in the left lateral decubitus position where sedation was achieved as noted above. Esophageal intubation was performed without difficulty, and the endoscope was advanced through the esophagus, stomach and duodenum. A slow withdrawal was then performed with retroflexion in the stomach for careful inspection of the incisura angularis, fundus and cardia. The scope was then returned to a neutral position and withdrawn through the esophagus. The patient tolerated the procedure well and without complication. BIOPSIES: Gastric antrum/body PHOTOGRAPHS: Obtained FINDINGS: Hypopharynx and Larynx: Normal Esohagoscopy Upper and middle thirds: Severe, LA class D erosive esophagitis between 23 and 35 cm Lower third LA class D erosive esophagitis between 23 cm and 35 cm, biopsied Esophogastric junctions: Slight narrowing at the EG junction, no gross evidence of Smart's, biopsied--this area was dilated to 57 Norwegian by single pass Savary dilator over wire with minimal resistance and no heme Gastroscopy: Cardia/Fundus: 7 cm hiatal hernia noted between 35 cm and 42 cm likely the cause of some of the patient's acid splash up Body: Thickened folds, diffuse gastritis, external compression from ascites. Biopsies were obtained to look for Helicobacter pylori Antrum and pylorus thickened folds, diffuse gastritis, patulous pylorus , biopsied Duodenoscopy: Bulb relatively normal-appearing duodenal mucosa Second and third portions: Normal-appearing duodenal mucosa IMPRESSION: Severe LA class D erosive esophagitis for 12 cm in the distal esophagus, because of dysphagia the patient was dilated to 57 Norwegian but I believe most of her difficulty with swallowing is likely due to the severe esophagitis. 7 cm hiatal hernia, diffuse gastritis with gastric compression due to external ascites. RECOMMENDATIONS: Follow up for biopsy results in 1-2 weeks by phone [phone] Continue anti-gastroesophageal reflux measures (avoid carbonated and acidic beverages, avoid eating within 2 hours of bedtime, avoid tight fitting clothing , and elevate the front bed posts 6 inches prior to sleeping. Patient may benefit from paracentesis to be done to relieve some of the external pressure on the stomach--this will likely help with food tolerance and possibly reflux. Reglan 10 mg either p.o. by elixir or IV to help with stomach emptying/motility. Protonix 40 mg IV twice daily initially, when the patient is able to tolerate p.o. better we can transition over to Suggest paracentesis to be done for patient comfort and to check for peritoneal carcinomatosis with cytology Victor Manuel Gonzales MD COPY TO: Dr. Telly Deshpande MD Anesthesia: MAC Surgeon / Physician: Victor Manuel Gonzales Estimated blood loss: minimal Specimens: other (Esophageal biopsies, gastric antrum/body) Condition: stable Disposition: post procedure unit ([facility]) Results - Labs CBC & BMP: 10/04/16 04:20 10/04/16 04:20 Discharge Plan - Discharge Medications No Action Cetirizine Tab [ZyrTEC Tab] 10 mg PO QAM cloNIDine TAB [Catapres Tab] 0.1 mg PO BID Lisinopril 40 mg PO QAM Magnesium Oxide 400 mg PO DAILY Metoprolol Succinate 100 mg PO BID Pregabalin [Lyrica] 50 mg PO BID Cyanocobalamin (Vitamin B-12) [Vitamin B-12] 1,000 mcg PO DAILY Esomeprazole Magnesium [Nexium] 20 mg PO DAILY Folic Acid/Mv,Iron,Min [One Daily For Women Tablet] 1 each PO DAILY Gluc/Javier-MSM#1/C/Anil/Mitchell/Bor [Osteo Bi-Flex Caplet] 1 each PO DAILY Ondansetron Odt Tab [Zofran Odt] 4 mg PO Q8H PRN PRN Reason: Nausea Polyethylene Glycol Powder [Miralax] 17 gm PO DAILY PRN PRN Reason: Constipation Potassium 99 mg PO BID amLODIPine [Norvasc] 5 mg PO BEDTIME Cholecalciferol (Vitamin D3) [Vitamin D3] 5,000 unit PO DAILY Dicyclomine Cap/Tab [Bentyl Cap/Tab] 20 mg PO QID PRN PRN Reason: Reflux Loperamide Cap [Imodium Cap] 2 mg PO Q4HR PRN PRN Reason: Diarrhea Prochlorperazine Tab [Compazine Tab] 10 mg PO Q4H PRN PRN Reason: Nausea - Follow Up or Referral - Forms/Instructions
[2016-10-08 08:28] LABS: Basophils % 0.1 % (0.0-0.8); Eosinophils # 0.1 10*3/uL (0.0-0.87); Eosinophils % 1.6 % (0.00-10.9); Hematocrit 40.4 VOL% (35.7-47.0); Hemoglobin 13.4 GM/DL (12.0-16.0); Immature Granulocytes % 0.9 %; Immature Granulocytes Absolute 0.08 #; Lymphocytes # 3.7 10*3/uL (1.4-4.0); Lymphocytes % 41.3 % (21.3-54.2); Mean Corpuscular HGB Conc 33.2 GM/DL (32-36); Mean Corpuscular Hemoglobin 30 PG (27-34); Mean Corpuscular Volume 89.8 FL (87-102); Mean Platelet Volume 9.9 FL (9.6-12.0); Monocytes # 0.1 10*3/uL (0.11-0.8); Monocytes % 0.6 % (1.7-12.7); Neutrophils % 55.5 % (38.7-73.9); Platelet Count 174 T/CUMM (130-400); Red Cell Distribution Width 15.2 % (9.3-17.3); White Blood Count 8.9 T/CUMM (4-12)
--- NOTE | 2016-10-08 08:33 | Anesthesia Post-Op ---
Anesthesia Post OP - Post Ansesthetic Evaluation Patient seen in post op: Yes Resp: within normal limits CV: within normal limits Mental: within normal limits Temp: within normal limits [id number]: within normal limits Nausea and Vomiting: within normal limits Pain: within normal limits
--- NOTE | 2016-10-08 08:34 | Gastrointestinal Progress Note ---
Assessment and Plan (1) Pharyngoesophageal dysphagia Status: Acute Assessment and plan: This patient has been evaluated by Dr. Chetan Whitfield in the past and underwent upper endoscopy with dilation 2 years ago. She states that this did improve her swallowing for some time afterwards. I remain dubious that this patient will have a stricture, it is equally likely that she may have severe erosive esophagitis or fungal esophagitis producing some of the symptoms that she is experiencing. Upper endoscopy is scheduled for tomorrow. I agree with use of Protonix IV twice daily for good acid suppression. 10/08/16--the patient had her endoscopy this morning findings are as follows: Severe LA class D erosive esophagitis for 12 cm in the distal esophagus, because of dysphagia the patient was dilated to 57 Malay but I believe most of her difficulty with swallowing is likely due to the severe esophagitis. 7 cm hiatal hernia, diffuse gastritis with gastric compression due to external ascites. I am going to ask interventional radiology to consider doing a paracentesis if there is significant amount of fluid hopefully therapeutic. We can send the fluid for cytology, to confirm the peritoneal carcinomatosis. This should help her ability no swallowing digest and decrease her reflux by relieving some of the external compression on the stomach. She needs to remain on Protonix IV twice daily until her esophagitis improves to the point where she is able to tolerate p.o. better. Clear liquids for the present time. Will observe the patient on Reglan IV as well. Current Visit: Yes (2) Nausea and vomiting Status: Acute Assessment and plan: The patient may have some element of gastroparesis present and would likely benefit from use of Reglan. Will discontinue the Compazine as these 2 together can certainly produce a high risk for neuroleptic malignant syndrome, will try the IV Reglan and see if she has intolerable side effects. I will look during the endoscopy and see if the patient has evidence of gastroparesis as well. 10/08/16--as noted above. Current Visit: Yes (3) History of colon cancer Status: Inactive Assessment and plan: At some point we might consider doing a repeat colonoscopy should the patient go back into remission again. She may prefer to do this with Dr. Whitfield's office 10/08/16--This patient will likely require repeat colonoscopy. We can address this later after (if) she goes into remission again Current Visit: No Gastroenterology - PN: Subj Interval history: Patient is doing about the same as yesterday. Still having dysphagia symptoms. Exam (Progress Note) - Constitutional Vitals: Period Temp Pulse Resp BP Sys/Carrion Pulse Ox Last 24 Hr 97.1 F-98.4 F 83-99 15-18 148-170/85-101 92-98 General appearance: mild distress - Head Head exam: Present: normocephalic, atraumatic - Eye Eye exam: Present: EOMI - Respiratory Respiratory exam: Present: clear to auscultation bilaterally - Cardiovascular Cardiovascular exam: Present: regular rate and rhythm - GI/Abdominal GI/Abdominal exam: Present: normal bowel sounds, distended, firm, tenderness ( Diffuse), soft. Absent: guarding, rebound - Neurological Exam Neurological exam: Present: alert, oriented X3, CN II-XII intact - Psychiatric Psychiatric exam: Present: normal affect, normal mood - Skin Skin exam: Present: warm Results - Labs CBC & BMP: 10/04/16 04:20 10/04/16 04:20
[2016-10-08 08:57] LABS: Eosinophils 3 % (0-10); Hypochromasia 1+; Lymphocytes 37 % (20-55); Nucleated Red Blood Cells 1 (0-5); Segmented Neutrophils 60 % (50-85); Total Cells Counted 100
[2016-10-08 08:58] LABS: Microcytosis Slight; Platelet Estimate Adequate
[2016-10-08 09:02] LABS: Bilirubin,Total 0.9 MG/DL (0.2-1.0); Calcium 8.6 MG/DL (8.5-10.1); Osmolality,Calculated 277.5 MOS/KG (273-304); Potassium 3.8 MMOL/L (3.5-5.1); Total Protein 6.6 G/DL (6.4-8.3)
[2016-10-08] MEDS: GRANISETRON 1 MG/1 ML VIAL IV SCH (09:47)
[2016-10-08] MEDS: FLUCONAZOLE INJ 100 MG in IV BAG 1 EACH IV SCH (09:47)
[2016-10-08] MEDS: DEXAMETHASONE 4 MG/1 ML VIAL IV SCH (09:47)
[2016-10-08] MEDS: PANTOPRAZOLE 40 MG VIAL IV SCH ×2 (09:47→21:07)
[2016-10-08 10:45] LABS: PT Patient Result 10.8 SECS
[2016-10-08] MEDS: POLYETHYLENE GLYCOL POWDER 17 GM PACK PO SCH ×2 (12:22→21:08)
[2016-10-08] MEDS: CYANOCOBALAMIN 500 MCG TABLET PO SCH (14:22)
[2016-10-08] MEDS: POTASSIUM GLUCONATE 500 MG TABLET PO SCH ×2 (14:22→21:08)
[2016-10-08] MEDS: PREGABALIN 50 MG CAPSULE PO SCH ×2 (14:22→21:07)
[2016-10-08] MEDS: CHOLECALCIFEROL 1,000 UNIT TABLET PO SCH (14:22)
[2016-10-08] MEDS: MULTIVITAMIN (CENTRUM) TABLET PO SCH (14:22)
[2016-10-08] MEDS: CETIRIZINE 10 MG TABLET PO SCH (14:23)
[2016-10-08] MEDS: cloNIDine 0.1 MG TABLET PO SCH ×2 (14:23→21:08)
[2016-10-08] MEDS: PROMETHAZINE INJ 25 MG in SODIUM CHLORIDE 0.9% 50 ML IV PRN (15:40)
[2016-10-08] MEDS: ALUMINUM/MAGNES/SIMETH MAX STR 30 ML UDCUP PO PRN (18:22)
[2016-10-08] MEDS: amLODIPine 5 MG TABLET PO SCH (21:07)
[2016-10-08] MEDS: MAGNESIUM OXIDE 400 MG TABLET PO SCH (21:08)
[2016-10-09] MEDS: METOCLOPRAMIDE 10 MG/2 ML VIAL IV SCH ×4 (05:52→23:58)
[2016-10-09 06:20] LABS: Albumin 2.5 G/DL (3.4-5.0); Bilirubin,Total 0.7 MG/DL (0.2-1.0); Calcium 7.8 MG/DL (8.5-10.1); Osmolality,Calculated 278.4 MOS/KG (273-304); Potassium 3.5 MMOL/L (3.5-5.1); Total Protein 5.4 G/DL (6.4-8.3)
[2016-10-09 08:22] LABS: Basophils % 0.3 % (0.0-0.8); Eosinophils # 0.1 10*3/uL (0.0-0.87); Eosinophils % 1.8 % (0.00-10.9); Hemoglobin 11.3 GM/DL (12.0-16.0); Immature Granulocytes % 0.9 %; Immature Granulocytes Absolute 0.03 #; Lymphocytes # 2.6 10*3/uL (1.4-4.0); Lymphocytes % 79.3 % (21.3-54.2); Mean Corpuscular HGB Conc 33.2 GM/DL (32-36); Mean Corpuscular Hemoglobin 31 PG (27-34); Mean Corpuscular Volume 91.9 FL (87-102); Mean Platelet Volume 9.7 FL (9.6-12.0); Monocytes % 0.9 % (1.7-12.7); Neutrophils # 0.6 10*3/uL (1.4-7.4); Neutrophils % 16.8 % (38.7-73.9); Platelet Count 112 T/CUMM (130-400); Red Cell Distribution Width 15.1 % (9.3-17.3); White Blood Count 3.3 T/CUMM (4-12)
[2016-10-09 08:59] LABS: Eosinophils 5 % (0-10); Hypochromasia 1+; Lymphocytes 70 % (20-55); Platelet Estimate Decreased; Segmented Neutrophils 25 % (50-85); Total Cells Counted 100
--- NOTE | 2016-10-09 09:51 | Oncology Progress Note ---
Oncology Subjective PN Interval history: Ms. Francisco was admitted with recurrent colon cancer. She has also been documented to have erosive esophagitis by Dr. Cevallos. Dr. Gonzales has suggested a paracentesis and I agree with this but, as expected, the patient's white cell count is falling so I am going to start her on Neupogen and consider an ultrasound-guided paracentesis when her white cell count begins to rise. I was going to treat her with Cyramza but with her erosive esophagitis, I think this is too hazardous. She is begging for additional food so we will try full liquids. She is also having diarrhea so we will stop Reglan at her insistence. I will hope to be able to do paracentesis under ultrasound sometime next week when her condition is more stable. She is having a lot of problems with hemorrhoids and we are treating them as well. I certainly appreciate Dr. Cevallos input. Exam - Constitutional Vitals: Period Temp Pulse Resp BP Sys/Carrion Pulse Ox Last 24 Hr 97.4 F-99.3 F 86-93 14-20 143-165/79-92 96-98 Results - Labs CBC & BMP: 10/09/16 07:36 10/09/16 04:00
[2016-10-09] MEDS: CETIRIZINE 10 MG TABLET PO SCH (10:16)
[2016-10-09] MEDS: PREGABALIN 50 MG CAPSULE PO SCH ×3 (10:16→21:07)
[2016-10-09] MEDS: SUCRALFATE 1 GM/10 ML UDCUP PO SCH ×4 (10:16→21:07)
[2016-10-09] MEDS: CYANOCOBALAMIN 500 MCG TABLET PO SCH (10:16)
[2016-10-09] MEDS: MULTIVITAMIN (CENTRUM) TABLET PO SCH (10:16)
[2016-10-09] MEDS: cloNIDine 0.1 MG TABLET PO SCH ×2 (10:17→21:16)
[2016-10-09] MEDS: POTASSIUM GLUCONATE 500 MG TABLET PO SCH ×2 (10:17→21:17)
[2016-10-09] MEDS: POLYETHYLENE GLYCOL POWDER 17 GM PACK PO SCH ×2 (10:19→21:19)
[2016-10-09] MEDS: GRANISETRON 1 MG/1 ML VIAL IV SCH (10:21)
[2016-10-09] MEDS: PANTOPRAZOLE 40 MG VIAL IV SCH ×2 (10:22→21:07)
[2016-10-09] MEDS: FILGRASTIM-SNDZ 300 MCG/0.5 ML SYRINGE SUBCUT SCH (10:24)
[2016-10-09] MEDS: DEXAMETHASONE 4 MG/1 ML VIAL IV SCH (10:28)
[2016-10-09] MEDS ORDERED: HYDROCORTISONE 2.5% RECTAL CREAM 30 GM TUBE TOP PRN (13:01)
[2016-10-09] MEDS: CHOLECALCIFEROL 1,000 UNIT TABLET PO SCH (13:09)
[2016-10-09] MEDS: FLUCONAZOLE INJ 100 MG in IV BAG 1 EACH IV SCH (13:14)
[2016-10-09] MEDS: ONDANSETRON ODT 4 MG TABLET PO PRN (15:33)
[2016-10-09] MEDS: SODIUM CHLORIDE 0.9% 1,000 ML IV SCH (15:39)
--- NOTE | 2016-10-09 17:59 | Gastrointestinal Progress Note ---
Assessment and Plan (1) Pharyngoesophageal dysphagia Status: Acute Assessment and plan: This patient has been evaluated by Dr. Chetan Whitfield in the past and underwent upper endoscopy with dilation 2 years ago. She states that this did improve her swallowing for some time afterwards. I remain dubious that this patient will have a stricture, it is equally likely that she may have severe erosive esophagitis or fungal esophagitis producing some of the symptoms that she is experiencing. Upper endoscopy is scheduled for tomorrow. I agree with use of Protonix IV twice daily for good acid suppression. 10/08/16--the patient had her endoscopy this morning findings are as follows: Severe LA class D erosive esophagitis for 12 cm in the distal esophagus, because of dysphagia the patient was dilated to 57 [place] but I believe most of her difficulty with swallowing is likely due to the severe esophagitis. 7 cm hiatal hernia, diffuse gastritis with gastric compression due to external ascites. I am going to ask interventional radiology to consider doing a paracentesis if there is significant amount of fluid hopefully therapeutic. We can send the fluid for cytology, to confirm the peritoneal carcinomatosis. This should help her ability no swallowing digest and decrease her reflux by relieving some of the external compression on the stomach. She needs to remain on Protonix IV twice daily until her esophagitis improves to the point where she is able to tolerate p.o. better. Clear liquids for the present time. Will observe the patient on Reglan IV as well. 10/09/16--Discussed the findings of the upper endoscopy with the patient and her once again today. As well as the need for Reglan in terms of emptying the patient's stomach and acting as a promotility agent given the amount of retained fluid in the stomach that he is refluxing back up into the esophagus. She seems to be tolerating the full liquid diet adequately. Perhaps we can advance her diet soon. I would definitely leave her on the IV Protonix and IV Reglan for now. As per Dr. Deshpande we are holding off on paracentesis for the present time. Current Visit: Yes (2) Nausea and vomiting Status: Acute Assessment and plan: The patient may have some element of gastroparesis present and would likely benefit from use of Reglan. Will discontinue the Compazine as these 2 together can certainly produce a high risk for neuroleptic malignant syndrome, will try the IV Reglan and see if she has intolerable side effects. I will look during the endoscopy and see if the patient has evidence of gastroparesis as well. 10/08/16--as noted above. 10/09/16--The nausea and vomiting are actually doing great deal better at this point. Again we discussed the Reglan which was going to be cut back from 10 mg every 6-5 mg every 6. A great deal this diarrhea may be secondary to previous chemo the patient was gotten as well. Current Visit: Yes (3) History of colon cancer Status: Inactive Assessment and plan: At some point we might consider doing a repeat colonoscopy should the patient go back into remission again. She may prefer to do this with Dr. Whitfield's office 10/08/16--This patient will likely require repeat colonoscopy. We can address this later after (if) she goes into remission again 10/09/16--as above. Current Visit: No Gastroenterology - PN: Subj Interval history: Patient complaining of diarrhea approximately 6-7 times per day which may be secondary to the recent chemotherapy versus increase of Reglan from 5 mg q. 6- 10 mg every 6 hours. At the patient's request we have cut this back to 5 mg every 6 hours. Exam (Progress Note) - Constitutional Vitals: Period Temp Pulse Resp BP Sys/Carrion Pulse Ox Last 24 Hr 97.3 F-99.4 F 85-92 14-20 138-165/75-88 96-99 General appearance: mild distress - Head Head exam: Present: normocephalic, atraumatic - Eye Eye exam: Present: EOMI Pupils: Present: KT - Respiratory Respiratory exam: Present: clear to auscultation bilaterally. Absent: stridor, wheezes - Cardiovascular Cardiovascular exam: Present: regular rate and rhythm - GI/Abdominal GI/Abdominal exam: Present: ascites, distended, hyperactive bowel sounds, soft. Absent: guarding, tenderness, rebound - Extremities Exam Extremities exam: Absent: edema - Neurological Exam Neurological exam: Present: alert, oriented X3 - Psychiatric Psychiatric exam: Present: normal affect, normal mood Results - Labs CBC & BMP: 10/09/16 07:36 10/09/16 04:00
[2016-10-09] MEDS: amLODIPine 5 MG TABLET PO SCH (21:07)
[2016-10-09] MEDS: MAGNESIUM OXIDE 400 MG TABLET PO SCH (21:17)
[2016-10-10] MEDS ORDERED: HEPARIN LOCK FLUSH 500 UNIT/5 ML SYRINGE IV ONE (02:01)
[2016-10-10 04:58] LABS: Basophils % 0.3 % (0.0-0.8); Eosinophils # 0.1 10*3/uL (0.0-0.87); Eosinophils % 2.2 % (0.00-10.9); Hemoglobin 11.2 GM/DL (12.0-16.0); Immature Granulocytes % 0.8 %; Immature Granulocytes Absolute 0.03 #; Lymphocytes # 2.5 10*3/uL (1.4-4.0); Lymphocytes % 71.1 % (21.3-54.2); Mean Corpuscular HGB Conc 32.9 GM/DL (32-36); Mean Corpuscular Hemoglobin 30 PG (27-34); Mean Corpuscular Volume 90.9 FL (87-102); Mean Platelet Volume 9.3 FL (9.6-12.0); Monocytes # 0.1 10*3/uL (0.11-0.8); Neutrophils # 0.8 10*3/uL (1.4-7.4); Neutrophils % 23.6 % (38.7-73.9); Red Blood Count 3.74 MC/CUMM (3.8-5.5); Red Cell Distribution Width 14.7 % (9.3-17.3); White Blood Count 3.6 T/CUMM (4-12)
[2016-10-10 05:06] LABS: Platelet Count 86 T/CUMM (130-400)
[2016-10-10] MEDS: METOCLOPRAMIDE 10 MG/2 ML VIAL IV SCH ×2 (05:10→11:37)
[2016-10-10] MEDS: SODIUM CHLORIDE 0.9% 1,000 ML IV SCH ×2 (05:10→21:17)
[2016-10-10 05:19] LABS: Albumin 2.6 G/DL (3.4-5.0); Calcium 8.1 MG/DL (8.5-10.1); Osmolality,Calculated 278.4 MOS/KG (273-304); Potassium 3.4 MMOL/L (3.5-5.1); Total Protein 5.1 G/DL (6.4-8.3)
[2016-10-10 05:46] LABS: Band Neutrophils 1 % (0-10); Eosinophils 1 % (0-10); Hypochromasia 1+; Lymphocytes 76 % (20-55); Platelet Estimate Decreased; Segmented Neutrophils 21 % (50-85); Total Cells Counted 100
[2016-10-10 05:47] LABS: Atypical Lymphocytes Few; Microcytosis Slight
--- NOTE | 2016-10-10 07:18 | Oncology Progress Note ---
Assessment and Plan (1) Colon adenocarcinoma Status: Acute Current Visit: Yes (2) Esophagitis Status: Acute Current Visit: Yes Oncology Subjective PN Interval history: Ms. Francisco seems to be doing well this morning. Her urine cultures growing gram-negative rods. Previous culture a few days ago showed E. coli that was pansensitive. I will place her on Cipro. She is currently on Diflucan for oral and esophageal candidiasis. She is also on Protonix IV twice daily. Her abdomen is soft on exam today. There is some consideration for paracentesis. I do not palpate much abdominal fluid. I encouraged her to ambulate today and sit up in a chair. She is on Neupogen so we will keep a close watch on her CBC. Exam - Constitutional Vitals: Period Temp Pulse Resp BP Sys/Carrion Pulse Ox Last 24 Hr 97.3 F-99.6 F 84-90 16-20 138-165/75-90 97-99 General appearance: normal weight, no acute distress - Head Head Exam: Present: normocephalic, atraumatic - Eye Eye Exam: Present: EOMI Pupils: Present: PERRL - ENT ENT exam: Present: normal exam - Neck Neck exam: Absent: lymphadenopathy, thyromegaly - Respiratory Respiratory exam: Present: CTAB. Absent: wheezes - Cardiovascular Cardiovascular exam: Present: RRR. Absent: irregular rhythm - GI/Abdominal GI/Abdominal exam: Present: soft. Absent: ascites, distended, firm, mass - Neurological Exam Neurological exam: Present: alert, oriented X3, CN II-XII intact - Psychiatric Psychiatric exam: Present: normal affect, normal mood - Skin Skin exam: Present: warm, dry Results - Labs CBC & BMP: 10/10/16 04:00 10/10/16 04:00 Lab Results: I have reviewed the past 24 hour labs
[2016-10-10] MEDS: FLUCONAZOLE INJ 100 MG in IV BAG 1 EACH IV SCH (08:48)
[2016-10-10] MEDS: FILGRASTIM-SNDZ 300 MCG/0.5 ML SYRINGE SUBCUT SCH (08:49)
[2016-10-10] MEDS: POTASSIUM GLUCONATE 500 MG TABLET PO SCH ×2 (08:51→20:09)
[2016-10-10] MEDS: cloNIDine 0.1 MG TABLET PO SCH ×2 (08:51→20:09)
[2016-10-10] MEDS: CETIRIZINE 10 MG TABLET PO SCH (08:51)
[2016-10-10] MEDS: CHOLECALCIFEROL 1,000 UNIT TABLET PO SCH (08:51)
[2016-10-10] MEDS: CYANOCOBALAMIN 500 MCG TABLET PO SCH (08:51)
[2016-10-10] MEDS: CIPROFLOXACIN 500 MG TABLET PO SCH ×2 (08:51→20:09)
[2016-10-10] MEDS: MULTIVITAMIN (CENTRUM) TABLET PO SCH (08:51)
[2016-10-10] MEDS: SUCRALFATE 1 GM/10 ML UDCUP PO SCH ×2 (08:52→11:34)
[2016-10-10] MEDS: GRANISETRON 1 MG/1 ML VIAL IV SCH (08:52)
[2016-10-10] MEDS: PANTOPRAZOLE 40 MG VIAL IV SCH (08:53)
[2016-10-10] MEDS: DEXAMETHASONE 4 MG/1 ML VIAL IV SCH (08:53)
[2016-10-10] MEDS: POLYETHYLENE GLYCOL POWDER 17 GM PACK PO SCH (08:54)
[2016-10-10] MEDS: PREGABALIN 50 MG CAPSULE PO SCH ×2 (10:03→20:09)
--- NOTE | 2016-10-10 12:59 | Gastrointestinal Progress Note ---
Assessment and Plan (1) Pharyngoesophageal dysphagia Status: Acute Assessment and plan: This patient has been evaluated by Dr. Chetan Whitfield in the past and underwent upper endoscopy with dilation 2 years ago. She states that this did improve her swallowing for some time afterwards. I remain dubious that this patient will have a stricture, it is equally likely that she may have severe erosive esophagitis or fungal esophagitis producing some of the symptoms that she is experiencing. Upper endoscopy is scheduled for tomorrow. I agree with use of Protonix IV twice daily for good acid suppression. 10/08/16--the patient had her endoscopy this morning findings are as follows: Severe LA class D erosive esophagitis for 12 cm in the distal esophagus, because of dysphagia the patient was dilated to 57 Malaysian but I believe most of her difficulty with swallowing is likely due to the severe esophagitis. 7 cm hiatal hernia, diffuse gastritis with gastric compression due to external ascites. I am going to ask interventional radiology to consider doing a paracentesis if there is significant amount of fluid hopefully therapeutic. We can send the fluid for cytology, to confirm the peritoneal carcinomatosis. This should help her ability no swallowing digest and decrease her reflux by relieving some of the external compression on the stomach. She needs to remain on Protonix IV twice daily until her esophagitis improves to the point where she is able to tolerate p.o. better. Clear liquids for the present time. Will observe the patient on Reglan IV as well. 10/09/16--Discussed the findings of the upper endoscopy with the patient and her once again today. As well as the need for Reglan in terms of emptying the patient's stomach and acting as a promotility agent given the amount of retained fluid in the stomach that he is refluxing back up into the esophagus. She seems to be tolerating the full liquid diet adequately. Perhaps we can advance her diet soon. I would definitely leave her on the IV Protonix and IV Reglan for now. As per Dr. Deshpande we are holding off on paracentesis for the present time. 10/10/16--Review of the medication list indicates the patient was actually taking MiraLAX as well. This was discontinued today. Patient is doing well on her Reglan 5 mg 4 times daily and I am going to switch this over to a elixir form. As well as switching the patient over to Protonix in a solid form as well. We are still awaiting pathology from the esophagus. She continues on fluconazole, Protonix 40 mg twice daily, and the Reglan 5 mg 4 times daily. We will see how she does on the soft, lactose-free solid food Current Visit: Yes (2) Nausea and vomiting Status: Acute Assessment and plan: The patient may have some element of gastroparesis present and would likely benefit from use of Reglan. Will discontinue the Compazine as these 2 together can certainly produce a high risk for neuroleptic malignant syndrome, will try the IV Reglan and see if she has intolerable side effects. I will look during the endoscopy and see if the patient has evidence of gastroparesis as well. 10/08/16--as noted above. 10/09/16--The nausea and vomiting are actually doing great deal better at this point. Again we discussed the Reglan which was going to be cut back from 10 mg every 6-5 mg every 6. A great deal this diarrhea may be secondary to previous chemo the patient was gotten as well. 10/10/16--patient's diarrhea is down to about 3 per day. I expect this will firm up without the full liquid diet on more solid food. The Reglan should assist with emptying her stomach appropriately/reflux. Overall she seems much improved Current Visit: Yes (3) History of colon cancer Status: Inactive Assessment and plan: At some point we might consider doing a repeat colonoscopy should the patient go back into remission again. She may prefer to do this with Dr. Whitfield's office 10/08/16--This patient will likely require repeat colonoscopy. We can address this later after (if) she goes into remission again 10/09/16--as above. 10/10/16--same as above. Current Visit: No Gastroenterology - PN: Subj Interval history: The patient is doing really rather well. She is swallowing her full liquid diet without difficulty. This may be adding to her diarrhea. Also noticed that she still on the MiraLAX which may also be feeding into the diarrhea as well. We will start her on a lactose-free, soft solid diet today to see how she does with this. Exam (Progress Note) - Constitutional Vitals: Period Temp Pulse Resp BP Sys/Carrion Pulse Ox Last 24 Hr 98.7 F-99.6 F 84-95 16-20 138-165/81-90 96-98 General appearance: mild distress - Eye Eye exam: Present: EOMI - Respiratory Respiratory exam: Present: clear to auscultation bilaterally - Cardiovascular Cardiovascular exam: Present: regular rate and rhythm - GI/Abdominal GI/Abdominal exam: Present: normal bowel sounds, soft. Absent: distended, guarding, tenderness, rebound - Neurological Exam Neurological exam: Present: alert, oriented X3, CN II-XII intact - Skin Skin exam: Present: warm Results - Labs CBC & BMP: 10/10/16 04:00 10/10/16 04:00
[2016-10-10] MEDS: METOCLOPRAMIDE 10 MG/10 ML UDCUP PO SCH ×2 (17:40→20:08)
[2016-10-10] MEDS: PANTOPRAZOLE 40 MG TABLET PO SCH (18:15)
[2016-10-10] MEDS: amLODIPine 5 MG TABLET PO SCH (20:09)
[2016-10-10] MEDS: MAGNESIUM OXIDE 400 MG TABLET PO SCH (20:11)
[2016-10-11 05:00] LABS: Eosinophils # 0.1 10*3/uL (0.0-0.87); Hematocrit 31.6 VOL% (35.7-47.0); Hemoglobin 10.5 GM/DL (12.0-16.0); Immature Granulocytes % 0.3 %; Immature Granulocytes Absolute 0.01 #; Lymphocytes # 1.9 10*3/uL (1.4-4.0); Lymphocytes % 61.8 % (21.3-54.2); Mean Corpuscular HGB Conc 33.2 GM/DL (32-36); Mean Corpuscular Hemoglobin 29 PG (27-34); Mean Corpuscular Volume 88.5 FL (87-102); Mean Platelet Volume 9.5 FL (9.6-12.0); Monocytes # 0.1 10*3/uL (0.11-0.8); Monocytes % 2.3 % (1.7-12.7); Neutrophils % 32.6 % (38.7-73.9); Platelet Count 70 T/CUMM (130-400); Red Blood Count 3.57 MC/CUMM (3.8-5.5); Red Cell Distribution Width 14.4 % (9.3-17.3); White Blood Count 3.1 T/CUMM (4-12)
[2016-10-11 05:35] LABS: Albumin 2.4 G/DL (3.4-5.0); Bilirubin,Total 1.1 MG/DL (0.2-1.0); Osmolality,Calculated 278.4 MOS/KG (273-304); Potassium 3.1 MMOL/L (3.5-5.1); Total Protein 4.8 G/DL (6.4-8.3)
[2016-10-11 06:05] LABS: Band Neutrophils 2 % (0-10); Eosinophils 1 % (0-10); Hypochromasia 2+; Lymphocytes 66 % (20-55); Platelet Estimate Decreased; Polychromasia Few; Segmented Neutrophils 29 % (50-85); Total Cells Counted 100
[2016-10-11] MEDS: METOCLOPRAMIDE 10 MG/10 ML UDCUP PO SCH ×4 (06:41→21:07)
[2016-10-11] MEDS: ALUMINUM/MAGNES/SIMETH MAX STR 30 ML UDCUP PO PRN (06:41)
[2016-10-11] MEDS: PANTOPRAZOLE 40 MG TABLET PO SCH ×2 (06:41→21:06)
[2016-10-11] MEDS: DEXAMETHASONE 4 MG/1 ML VIAL IV SCH (09:10)
[2016-10-11] MEDS: GRANISETRON 1 MG/1 ML VIAL IV SCH (09:10)
[2016-10-11] MEDS: MULTIVITAMIN (CENTRUM) TABLET PO SCH (09:12)
[2016-10-11] MEDS: CHOLECALCIFEROL 1,000 UNIT TABLET PO SCH (09:12)
[2016-10-11] MEDS: POTASSIUM GLUCONATE 500 MG TABLET PO SCH ×2 (09:12→21:07)
[2016-10-11] MEDS: cloNIDine 0.1 MG TABLET PO SCH ×2 (09:13→21:06)
[2016-10-11] MEDS: CETIRIZINE 10 MG TABLET PO SCH (09:13)
[2016-10-11] MEDS: CIPROFLOXACIN 500 MG TABLET PO SCH ×2 (09:14→21:06)
[2016-10-11] MEDS: FILGRASTIM-SNDZ 300 MCG/0.5 ML SYRINGE SUBCUT SCH (09:14)
[2016-10-11] MEDS: CYANOCOBALAMIN 500 MCG TABLET PO SCH (09:14)
[2016-10-11] MEDS: PREGABALIN 50 MG CAPSULE PO SCH ×2 (09:17→21:06)
--- NOTE | 2016-10-11 09:52 | Oncology Progress Note ---
Assessment and Plan (1) Colon adenocarcinoma Status: Acute Current Visit: Yes (2) Esophagitis Status: Acute Current Visit: Yes (3) UTI (urinary tract infection) Status: Acute Current Visit: Yes Oncology Subjective PN Interval history: Ms. Francisco states she is doing much better today. Her throat is less sore. I started her on Cipro yesterday for gram-negative rods in her urine culture. Her neutrophil count is slowly increasing. I will add potassium to IV fluids for hypokalemia. I encouraged her to get out of bed and ambulate as much as she tolerates. She seems to be improving daily. Will continue with her Diflucan and Protonix IV. Exam - Constitutional Vitals: Period Temp Pulse Resp BP Sys/Carrion Pulse Ox Last 24 Hr 97.6 F-99.7 F 81-95 16-20 132-158/80-98 97-100 General appearance: normal weight, no acute distress - Head Head Exam: Present: normocephalic, atraumatic - Eye Eye Exam: Present: EOMI Pupils: Present: PERRL - ENT ENT exam: Present: normal exam, normal oropharynx - Neck Neck exam: Absent: lymphadenopathy, thyromegaly - Respiratory Respiratory exam: Present: CTAB. Absent: wheezes - Cardiovascular Cardiovascular exam: Present: RRR. Absent: JVD, systolic murmur - GI/Abdominal GI/Abdominal exam: Present: soft. Absent: ascites, distended, firm, mass - Neurological Exam Neurological exam: Present: alert, oriented X3 - Psychiatric Psychiatric exam: Present: normal affect, normal mood Results - Labs CBC & BMP: 10/11/16 04:00 10/11/16 04:00 Lab Results: I have reviewed the past 24 hour labs
[2016-10-11] MEDS: FLUCONAZOLE INJ 100 MG in IV BAG 1 EACH IV SCH (10:54)
[2016-10-11] MEDS: SODIUM CHLOR 0.9% KCL 20 MEQ 20 MEQ/1,000 ML BAG IV SCH (10:57)
--- NOTE | 2016-10-11 12:01 | Gastrointestinal Progress Note ---
Assessment and Plan (1) Pharyngoesophageal dysphagia Status: Acute Assessment and plan: This patient has been evaluated by Dr. Chetan Whitfield in the past and underwent upper endoscopy with dilation 2 years ago. She states that this did improve her swallowing for some time afterwards. I remain dubious that this patient will have a stricture, it is equally likely that she may have severe erosive esophagitis or fungal esophagitis producing some of the symptoms that she is experiencing. Upper endoscopy is scheduled for tomorrow. I agree with use of Protonix IV twice daily for good acid suppression. 10/08/16--the patient had her endoscopy this morning findings are as follows: Severe LA class D erosive esophagitis for 12 cm in the distal esophagus, because of dysphagia the patient was dilated to 57 [place] but I believe most of her difficulty with swallowing is likely due to the severe esophagitis. 7 cm hiatal hernia, diffuse gastritis with gastric compression due to external ascites. I am going to ask interventional radiology to consider doing a paracentesis if there is significant amount of fluid hopefully therapeutic. We can send the fluid for cytology, to confirm the peritoneal carcinomatosis. This should help her ability no swallowing digest and decrease her reflux by relieving some of the external compression on the stomach. She needs to remain on Protonix IV twice daily until her esophagitis improves to the point where she is able to tolerate p.o. better. Clear liquids for the present time. Will observe the patient on Reglan IV as well. 10/09/16--Discussed the findings of the upper endoscopy with the patient and her once again today. As well as the need for Reglan in terms of emptying the patient's stomach and acting as a promotility agent given the amount of retained fluid in the stomach that he is refluxing back up into the esophagus. She seems to be tolerating the full liquid diet adequately. Perhaps we can advance her diet soon. I would definitely leave her on the IV Protonix and IV Reglan for now. As per Dr. Deshpande we are holding off on paracentesis for the present time. 10/10/16--Review of the medication list indicates the patient was actually taking MiraLAX as well. This was discontinued today. Patient is doing well on her Reglan 5 mg 4 times daily and I am going to switch this over to a elixir form. As well as switching the patient over to Protonix in a solid form as well. We are still awaiting pathology from the esophagus. She continues on fluconazole, Protonix 40 mg twice daily, and the Reglan 5 mg 4 times daily. We will see how she does on the soft, lactose-free solid food 10/11/16--Doing well on Reglan, MiraLAX, fluconazole in combination. She be discharged from my standpoint. She is really come a long way. She can follow- up with me as needed in the future. Will sign off at this time-- thank you for the opportunity see is very pleasant patient. Current Visit: Yes (2) Nausea and vomiting Status: Acute Assessment and plan: The patient may have some element of gastroparesis present and would likely benefit from use of Reglan. Will discontinue the Compazine as these 2 together can certainly produce a high risk for neuroleptic malignant syndrome, will try the IV Reglan and see if she has intolerable side effects. I will look during the endoscopy and see if the patient has evidence of gastroparesis as well. 10/08/16--as noted above. 10/09/16--The nausea and vomiting are actually doing great deal better at this point. Again we discussed the Reglan which was going to be cut back from 10 mg every 6-5 mg every 6. A great deal this diarrhea may be secondary to previous chemo the patient was gotten as well. 10/10/16--patient's diarrhea is down to about 3 per day. I expect this will firm up without the full liquid diet on more solid food. The Reglan should assist with emptying her stomach appropriately/reflux. Overall she seems much improved 10/11/16--This seems to be controlled for the present time. She can be discharged when you feel she is ready from a oncologic standpoint. She is ready for discharge from a GI standpoint now Current Visit: Yes (3) History of colon cancer Status: Inactive Assessment and plan: At some point we might consider doing a repeat colonoscopy should the patient go back into remission again. She may prefer to do this with Dr. Whitfield's office 10/08/16--This patient will likely require repeat colonoscopy. We can address this later after (if) she goes into remission again 10/09/16--as above. 10/10/16--same as above. Current Visit: No Gastroenterology - PN: Subj Interval history: Patient is doing very well from my standpoint. She is not eating much but knows that she needs to eat multiple small meals during the day. There is no further vomiting. The diarrhea is under control. A prescription is been left in the front of the chart for her discharge. 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 Exam (Progress Note) - Constitutional Vitals: Period Temp Pulse Resp BP Sys/Carrion Pulse Ox Last 24 Hr 97.6 F-99.7 F 81-89 16-20 132-158/80-98 98-100 General appearance: no acute distress - Head Head exam: Present: normocephalic - Eye Eye exam: Present: EOMI - Respiratory Respiratory exam: Present: clear to auscultation bilaterally - Cardiovascular Cardiovascular exam: Present: regular rate and rhythm - GI/Abdominal GI/Abdominal exam: Present: normal bowel sounds, soft. Absent: distended, guarding, tenderness, rebound - Neurological Exam Neurological exam: Present: alert, oriented X3, CN II-XII intact. Absent: motor sensory deficit Results - Labs CBC & BMP: 10/11/16 04:00 10/11/16 04:00
[2016-10-11] MEDS: SODIUM CHLORIDE 0.9% 1,000 ML IV SCH (15:01)
[2016-10-11] MEDS: PROMETHAZINE INJ 25 MG in SODIUM CHLORIDE 0.9% 50 ML IV PRN (16:46)
[2016-10-11] MEDS: MAGNESIUM OXIDE 400 MG TABLET PO SCH (21:06)
[2016-10-11] MEDS: amLODIPine 5 MG TABLET PO SCH (21:06)
[2016-10-12] MEDS: SODIUM CHLOR 0.9% KCL 20 MEQ 20 MEQ/1,000 ML BAG IV SCH (02:09)
[2016-10-12] MEDS: ALUMINUM/MAGNES/SIMETH MAX STR 30 ML UDCUP PO PRN (04:53)
[2016-10-12 06:11] LABS: Basophils % 0.7 % (0.0-0.8); Eosinophils # 0.1 10*3/uL (0.0-0.87); Eosinophils % 2.5 % (0.00-10.9); Hematocrit 32.9 VOL% (35.7-47.0); Hemoglobin 11.1 GM/DL (12.0-16.0); Immature Granulocytes % 3.2 %; Immature Granulocytes Absolute 0.09 #; Lymphocytes # 1.9 10*3/uL (1.4-4.0); Lymphocytes % 66.7 % (21.3-54.2); Mean Corpuscular HGB Conc 33.7 GM/DL (32-36); Mean Corpuscular Hemoglobin 30 PG (27-34); Monocytes # 0.1 10*3/uL (0.11-0.8); Monocytes % 4.6 % (1.7-12.7); Neutrophils # 0.6 10*3/uL (1.4-7.4); Neutrophils % 22.3 % (38.7-73.9); Platelet Count 90 T/CUMM (130-400); Red Blood Count 3.74 MC/CUMM (3.8-5.5); Red Cell Distribution Width 14.5 % (9.3-17.3); White Blood Count 2.9 T/CUMM (4-12)
[2016-10-12 06:45] LABS: Atypical Lymphocytes Few; Band Neutrophils 3 % (0-10); Hypochromasia Slight; Lymphocytes 64 % (20-55); Platelet Estimate Decreased; Segmented Neutrophils 25 % (50-85); Total Cells Counted 100
[2016-10-12] MEDS: PANTOPRAZOLE 40 MG TABLET PO SCH ×2 (06:46→21:48)
[2016-10-12] MEDS: METOCLOPRAMIDE 10 MG/10 ML UDCUP PO SCH ×4 (06:46→21:47)
[2016-10-12 06:48] LABS: Albumin 2.4 G/DL (3.4-5.0); Bilirubin,Total 0.4 MG/DL (0.2-1.0); Osmolality,Calculated 280.3 MOS/KG (273-304); Potassium 3.2 MMOL/L (3.5-5.1); Total Protein 4.8 G/DL (6.4-8.3)
[2016-10-12] MEDS: CIPROFLOXACIN 500 MG TABLET PO SCH ×3 (07:57→21:49)
[2016-10-12] MEDS: POTASSIUM GLUCONATE 500 MG TABLET PO SCH ×3 (07:58→21:50)
[2016-10-12] MEDS: cloNIDine 0.1 MG TABLET PO SCH ×3 (07:58→21:49)
[2016-10-12] MEDS: GRANISETRON 1 MG/1 ML VIAL IV SCH (08:00)
[2016-10-12] MEDS: DEXAMETHASONE 4 MG/1 ML VIAL IV SCH (08:00)
[2016-10-12] MEDS: FLUCONAZOLE INJ 100 MG in IV BAG 1 EACH IV SCH (08:04)
[2016-10-12] MEDS: MULTIVITAMIN (CENTRUM) TABLET PO SCH (08:05)
[2016-10-12] MEDS: CHOLECALCIFEROL 1,000 UNIT TABLET PO SCH (08:05)
[2016-10-12] MEDS: CYANOCOBALAMIN 500 MCG TABLET PO SCH (08:05)
[2016-10-12] MEDS: PREGABALIN 50 MG CAPSULE PO SCH ×2 (08:05→21:49)
[2016-10-12] MEDS: FILGRASTIM-SNDZ 300 MCG/0.5 ML SYRINGE SUBCUT SCH (08:06)
[2016-10-12] MEDS: CETIRIZINE 10 MG TABLET PO SCH (08:06)
--- NOTE | 2016-10-12 08:24 | Oncology Progress Note ---
Oncology Subjective PN Interval history: Ms. Francisco received Folfiri beginning late in the week before last and it was interrupted because she wanted it discontinued temporarily. She subsequently developed pancytopenia. When she was admitted she had abdominal distention with intractable nausea and vomiting and required NG placement. She had ascites. Her condition is improved. Dr. Gonzales has documented erosive esophagitis. He recommended paracentesis last week and although I agree with doing it, I wanted to make sure her blood counts recovered some from the chemotherapy before we proceeded with since there is a small but definite risk of peritonitis and I did not want her to be neutropenic while having the paracentesis done. Lab work today includes white cell count of 2900, the absolute neutrophil count today is 600 and she has a hemoglobin of 11.1 and a platelet count of 90,000. She is still on GCSF for her neutropenia. I will order the paracentesis for later this week after that her absolute neutrophil count rises above 1500. She is still hypokalemic with a serum potassium of 3.2. Her serum sodium is normal. I am adjusting her IV fluids to include 40 mEq of potassium added to each liter. I am also adding glucose 5% to each liter. Exam - Constitutional Vitals: Period Temp Pulse Resp BP Sys/Carrion Pulse Ox Last 24 Hr 98.4 F-99 F 89-96 16-20 133-163/80-90 93-97 Results - Labs CBC & BMP: 10/12/16 04:00 10/12/16 04:00
--- NOTE | 2016-10-12 11:20 | Pathology Report from [facility] ---
ACCESSION # : [id number] PATIENT NAME : Linnea Fernandez ORDERING DR : Victor Manuel Gonzales MD CLINICAL HX: HX of colon CA, vomiting POST-OP DX: Same SPECIMEN INFO: #1 JOSEFINA #2 Distal esophgus GROSS DESCRIPTION: Received in formalin in two parts labeled:#1 "LINNEA FERNANDEZ & #1" is a 1.2 x 0.4 cm aggregate of hirsch tissue submitted in cassette #1.#2 "LINNEA FERNANDEZ & #2" is a 0.8 x 0.4 cm aggregate of hirsch tissue submitted in cassette #2. DIAGNOSIS FOR LINNEA FERNANDEZ: #1 JOSEFINA BIOPSIES: Chronic gastritis. H. pylroi not seen on special stain.#2 DISTAL ESOPHAGUS BIOPSY: Ulceration with necrosis and suppuration. Esophageal squamous mucosa with epithelial hyperplasia. Fungal stain positive. SERVICE DATE: 10/08/2016 REPORT DATE: 10/09/2016 PATHOLOGIST: Unruly Dawson M.D. [facility]
[2016-10-12] MEDS: DEXT 5% NACL 0.9% KCL 40 MEQ 40 MEQ/1,000 ML BAG IV SCH ×3 (11:30→19:30)
[2016-10-12] MEDS: ALPRAZolam 0.25 MG TABLET PO PRN (19:02)
[2016-10-12] MEDS: amLODIPine 5 MG TABLET PO SCH (21:48)
[2016-10-12] MEDS: MAGNESIUM OXIDE 400 MG TABLET PO SCH (21:50)
[2016-10-13] MEDS: ALPRAZolam 0.25 MG TABLET PO PRN ×2 (00:02→21:07)
[2016-10-13 05:14] LABS: Eosinophils # 0.1 10*3/uL (0.0-0.87); Eosinophils % 2.4 % (0.00-10.9); Hematocrit 36.5 VOL% (35.7-47.0); Hemoglobin 11.8 GM/DL (12.0-16.0); Lymphocytes # 2.8 10*3/uL (1.4-4.0); Lymphocytes % 73.2 % (21.3-54.2); Mean Corpuscular HGB Conc 32.3 GM/DL (32-36); Mean Corpuscular Hemoglobin 30 PG (27-34); Mean Corpuscular Volume 91.9 FL (87-102); Mean Platelet Volume 9.5 FL (9.6-12.0); Monocytes # 0.4 10*3/uL (0.11-0.8); Monocytes % 11.3 % (1.7-12.7); Neutrophils # 0.5 10*3/uL (1.4-7.4); Neutrophils % 13.1 % (38.7-73.9); Platelet Count 146 T/CUMM (130-400); Red Blood Count 3.97 MC/CUMM (3.8-5.5); Red Cell Distribution Width 14.6 % (9.3-17.3); White Blood Count 3.8 T/CUMM (4-12)
[2016-10-13 05:39] LABS: Atypical Lymphocytes Few; Band Neutrophils 3 % (0-10); Eosinophils 4 % (0-10); Hypochromasia 1+; Lymphocytes 72 % (20-55); Ovalocytes Slight; Platelet Estimate Normal; Segmented Neutrophils 9 % (50-85); Total Cells Counted 100
[2016-10-13 05:40] LABS: Microcytosis Slight
[2016-10-13 05:45] LABS: Albumin 2.7 G/DL (3.4-5.0); Bilirubin,Total 0.6 MG/DL (0.2-1.0); Calcium 8.3 MG/DL (8.5-10.1); Osmolality,Calculated 280.3 MOS/KG (273-304); Potassium 4.1 MMOL/L (3.5-5.1); Total Protein 5.5 G/DL (6.4-8.3)
[2016-10-13] MEDS: PANTOPRAZOLE 40 MG TABLET PO SCH ×2 (06:39→21:07)
--- NOTE | 2016-10-13 07:37 | Oncology Progress Note ---
Oncology Subjective PN Interval history: Ms. 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 She has been treated on more than one occasion because of progression of disease. She was initially treated with FOLFOX and Folfiri along with Avastin. She received 3 courses of FOLFOX followed by 9 courses of Folfiri plus Avastin and then was switched to Avastin as a single agent with the last of this series of chemotherapy treatments being October 16, 2013. She continued Avastin as a single agent until she developed progression. She had evidence of progressive disease that took some time to manifest and started back on chemotherapy again consisting of 3 courses of FOLFOX beginning in November 2015 and switching to Folfiri 4 5 courses that she finished February. I have been following her since that time and when I saw her in my office earlier this week she was having some nausea and increasing abdominal distention and anorexia and a sense of fullness. At the time of that examination, I was concerned that she had progression of disease again. She had recently had a CT of the abdomen and pelvis that was done September 17, 2016 and compared to the most recent one of June 18, 2015. It suggested that she had progression of disease again. This is the reason I admitted her and proceeded with Folfiri again at this time. I also was planning to give her Cyramza but those plans are on hold for now. She was treated with Folfiri last week and became pancytopenic. However, her abdominal distention has improved and she is eating now and having bowel movements. Lab work today includes:White cell count of 3800 with an absolute neutrophil count of 500, hemoglobin of 11.8 and a platelet count of 146,000. She is continuing granulocyte colony-stimulating factor because of the neutropenia. I am going to consider paracentesis once her platelet count and her absolute neutrophil count reached a relatively safe level. The platelet count is acceptable but the absolute neutrophil count is still a little low to proceed with paracentesis today. Her appetite is not good. She is having no nausea but she has a feeling of early satiety. She is actually having no abdominal pain either. Her oral mucosa appears normal. Her lungs are clear with normal breath sounds. Heart sounds are normal. She has no focal neurologic deficits. We are continuing to await improvement in her blood counts, especially her white cell count, before proceeding with additional testing. Exam - Constitutional Vitals: Period Temp Pulse Resp BP Sys/Carrion Pulse Ox Last 24 Hr 96.1 F-99 F 80-112 18-20 133-152/80-89 93-96 Results - Labs CBC & BMP: 10/13/16 04:30 10/13/16 04:30
[2016-10-13] MEDS: cloNIDine 0.1 MG TABLET PO SCH ×2 (08:54→21:08)
[2016-10-13] MEDS: FILGRASTIM-SNDZ 300 MCG/0.5 ML SYRINGE SUBCUT SCH (08:54)
[2016-10-13] MEDS: GRANISETRON 1 MG/1 ML VIAL IV SCH (08:54)
[2016-10-13] MEDS: CIPROFLOXACIN 500 MG TABLET PO SCH ×2 (08:54→21:07)
[2016-10-13] MEDS: DEXAMETHASONE 4 MG/1 ML VIAL IV SCH (08:54)
[2016-10-13] MEDS: POTASSIUM GLUCONATE 500 MG TABLET PO SCH ×2 (08:54→21:09)
[2016-10-13] MEDS: METOCLOPRAMIDE 10 MG/10 ML UDCUP PO SCH ×4 (08:55→21:07)
[2016-10-13] MEDS: MULTIVITAMIN (CENTRUM) TABLET PO SCH (08:55)
[2016-10-13] MEDS: CYANOCOBALAMIN 500 MCG TABLET PO SCH (10:05)
[2016-10-13] MEDS: CETIRIZINE 10 MG TABLET PO SCH (10:05)
[2016-10-13] MEDS: CHOLECALCIFEROL 1,000 UNIT TABLET PO SCH (10:05)
[2016-10-13] MEDS: PREGABALIN 50 MG CAPSULE PO SCH ×2 (10:05→21:08)
[2016-10-13] MEDS: FLUCONAZOLE INJ 100 MG in IV BAG 1 EACH IV SCH (10:17)
[2016-10-13] MEDS: DEXT 5% NACL 0.9% KCL 40 MEQ 40 MEQ/1,000 ML BAG IV SCH ×3 (10:17→21:06)
[2016-10-13] MEDS: amLODIPine 5 MG TABLET PO SCH (21:08)
[2016-10-13] MEDS: MAGNESIUM OXIDE 400 MG TABLET PO SCH (21:09)
[2016-10-13] MEDS: ALUMINUM/MAGNES/SIMETH MAX STR 30 ML UDCUP PO PRN (22:17)
[2016-10-14] MEDS: ALPRAZolam 0.25 MG TABLET PO PRN ×2 (02:15→21:01)
[2016-10-14] MEDS: DEXT 5% NACL 0.9% KCL 40 MEQ 40 MEQ/1,000 ML BAG IV SCH ×3 (05:14→23:47)
[2016-10-14 05:56] LABS: Basophils # 0.1 10*3/uL (0.0-0.2); Basophils % 0.8 % (0.0-0.8); Eosinophils # 0.2 10*3/uL (0.0-0.87); Eosinophils % 2.2 % (0.00-10.9); Hematocrit 33.5 VOL% (35.7-47.0); Hemoglobin 11.2 GM/DL (12.0-16.0); Immature Granulocytes % 1.1 %; Immature Granulocytes Absolute 0.08 #; Lymphocytes # 3.2 10*3/uL (1.4-4.0); Lymphocytes % 43.5 % (21.3-54.2); Mean Corpuscular HGB Conc 33.4 GM/DL (32-36); Mean Corpuscular Hemoglobin 31 PG (27-34); Mean Corpuscular Volume 91.3 FL (87-102); Mean Platelet Volume 9.9 FL (9.6-12.0); Monocytes # 0.8 10*3/uL (0.11-0.8); Monocytes % 11.4 % (1.7-12.7); NRBC # 0.02 10*3/uL; Platelet Count 148 T/CUMM (130-400); Red Blood Count 3.67 MC/CUMM (3.8-5.5); Red Cell Distribution Width 14.6 % (9.3-17.3); White Blood Count 7.4 T/CUMM (4-12)
[2016-10-14 06:21] LABS: Hypochromasia Slight
[2016-10-14 06:42] LABS: Albumin 2.5 G/DL (3.4-5.0); Bilirubin,Total 1.1 MG/DL (0.2-1.0); Calcium 8.4 MG/DL (8.5-10.1); Osmolality,Calculated 278.3 MOS/KG (273-304); Potassium 4.1 MMOL/L (3.5-5.1); Total Protein 5.2 G/DL (6.4-8.3)
[2016-10-14] MEDS: PANTOPRAZOLE 40 MG TABLET PO SCH ×2 (06:42→18:40)
--- NOTE | 2016-10-14 07:18 | Oncology Progress Note ---
Oncology Subjective PN Interval history: This lady has metastatic colon cancer this recurrent for the second time. She was admitted with partial bowel obstruction that has improved. She has been pancytopenic as result of recent chemotherapy but this has resolved now. At this point I am consulting interventional radiology to perform a diagnostic paracentesis. It will need to include PHUC mutation studies. I am also considering treating her with Cyramza. She is having problems again with her esophageal reflux. I am ordering Carafate liquid. I discussed her case with Dr. Perez and have explained that we need tumor markers including tests for PHUC mutation if they can be done. Exam - Constitutional Vitals: Period Temp Pulse Resp BP Sys/Carrion Pulse Ox Last 24 Hr 97.8 F-99.2 F 85-102 18-20 124-143/78-87 94-98 Results - Labs CBC & BMP: 10/14/16 04:00 10/14/16 04:00
[2016-10-14] MEDS: FILGRASTIM-SNDZ 300 MCG/0.5 ML SYRINGE SUBCUT SCH (09:49)
[2016-10-14] MEDS: METOCLOPRAMIDE 10 MG/10 ML UDCUP PO SCH ×4 (09:49→21:05)
[2016-10-14] MEDS: CIPROFLOXACIN 500 MG TABLET PO SCH ×2 (09:50→21:01)
[2016-10-14] MEDS: GRANISETRON 1 MG/1 ML VIAL IV SCH (09:50)
[2016-10-14] MEDS: DEXAMETHASONE 4 MG/1 ML VIAL IV SCH (09:50)
[2016-10-14] MEDS: cloNIDine 0.1 MG TABLET PO SCH ×2 (09:51→21:01)
[2016-10-14] MEDS: CYANOCOBALAMIN 500 MCG TABLET PO SCH (10:05)
[2016-10-14] MEDS: PREGABALIN 50 MG CAPSULE PO SCH ×2 (10:05→21:01)
[2016-10-14] MEDS: POTASSIUM GLUCONATE 500 MG TABLET PO SCH ×2 (10:05→21:01)
[2016-10-14] MEDS: MULTIVITAMIN (CENTRUM) TABLET PO SCH (10:05)
[2016-10-14] MEDS: CETIRIZINE 10 MG TABLET PO SCH (10:06)
[2016-10-14] MEDS: CHOLECALCIFEROL 1,000 UNIT TABLET PO SCH (10:06)
[2016-10-14] MEDS: SUCRALFATE 1 GM/10 ML UDCUP PO SCH ×3 (11:49→21:01)
--- NOTE | 2016-10-14 13:50 | Ultrasound Report ---
US paracentesis abd w/image Indication: Ascites. Ultrasound-guided paracentesis Description: A formal timeout was performed. Maximum sterile barrier technique was used. The right lower quadrant was prepped and draped in sterile fashion. Under sonographic guidance, a 6 Kiswahili pigtail catheter was advanced into the ascites using trocar technique. A captured sonographic image documents needle position. The needle was removed. Through the catheter, we obtained a total of 2600 cc of straw-colored ascites. No additional fluid could be obtained. Therefore, the catheter was removed. A bandage was placed at the puncture site. The patient tolerated the procedure well. Specimen: 2600 cc of straw-colored ascites. Impression: Ultrasound-guided paracentesis. PROCEDURE INTERPRETED AT [facility] DEPARTMENT OF RADIOLOGY Final Report Signed by: Rafael Perez M.D.
[2016-10-14] MEDS: MAGNESIUM OXIDE 400 MG TABLET PO SCH (21:01)
[2016-10-14] MEDS: TEMAZEPAM 7.5 MG CAPSULE PO PRN (21:01)
[2016-10-14] MEDS: amLODIPine 5 MG TABLET PO SCH (21:01)
[2016-10-15 06:11] LABS: Basophils % 0.1 % (0.0-0.8); Eosinophils # 0.2 10*3/uL (0.0-0.87); Eosinophils % 0.8 % (0.00-10.9); Hematocrit 33.6 VOL% (35.7-47.0); Immature Granulocytes % 6.2 %; Immature Granulocytes Absolute 1.48 #; Lymphocytes # 4.8 10*3/uL (1.4-4.0); Mean Corpuscular HGB Conc 32.7 GM/DL (32-36); Mean Corpuscular Hemoglobin 30 PG (27-34); Mean Corpuscular Volume 92.3 FL (87-102); Mean Platelet Volume 9.2 FL (9.6-12.0); Monocytes # 1.5 10*3/uL (0.11-0.8); Monocytes % 6.2 % (1.7-12.7); Neutrophils % 66.7 % (38.7-73.9); Platelet Count 181 T/CUMM (130-400); Red Blood Count 3.64 MC/CUMM (3.8-5.5)
[2016-10-15 06:37] LABS: Band Neutrophils 40 % (0-10); Eosinophils 2 % (0-10); Hypochromasia 1+; Lymphocytes 16 % (20-55); Platelet Estimate Adequate; Promyelocytes 1 %; Segmented Neutrophils 34 % (50-85); Total Cells Counted 100
[2016-10-15] MEDS: PANTOPRAZOLE 40 MG TABLET PO SCH ×2 (06:41→18:15)
[2016-10-15] MEDS: SUCRALFATE 1 GM/10 ML UDCUP PO SCH ×4 (06:41→20:34)
[2016-10-15] MEDS: METOCLOPRAMIDE 10 MG/10 ML UDCUP PO SCH ×4 (06:41→20:34)
[2016-10-15 06:46] LABS: Albumin 2.3 G/DL (3.4-5.0); Bilirubin,Total 0.4 MG/DL (0.2-1.0); Calcium 8.8 MG/DL (8.5-10.1); Osmolality,Calculated 277.3 MOS/KG (273-304); Potassium 4.5 MMOL/L (3.5-5.1); Total Protein 4.5 G/DL (6.4-8.3)
--- NOTE | 2016-10-15 07:09 | Oncology Progress Note ---
Oncology Subjective PN Interval history: Ms. Francisco underwent paracentesis yesterday. Over 2 L of fluid were removed and it was straw-colored and clear. It is possible that there may not be any malignant cells and it. She has recurrent colon cancer and just completed a course of chemotherapy Using Folfiri. Lab work today includes white cell count of 24,000 with a hemoglobin of 11.0 and a platelet count of 181,000. I am discontinuing granulocyte colony- stimulating factor at this point. Chemistries today include normal electrolytes and a serum creatinine of 0.7. Her albumin is low reflecting malnutrition and actually probably starvation from the cancer. She seems to have improved following the paracentesis. Will stop IV fluids today and see if she becomes ambulatory. If she does, will consider discharge fairly soon. However, she remains chronically ill, emaciated and cachectic and weak. Exam - Constitutional Vitals: Period Temp Pulse Resp BP Sys/Carrion Pulse Ox Last 24 Hr 96.2 F-99.5 F 89-100 16-22 107-157/73-90 93-99 Results - Labs CBC & BMP: 10/15/16 04:30 10/15/16 04:30
[2016-10-15] MEDS: DEXAMETHASONE 4 MG/1 ML VIAL IV SCH (09:37)
[2016-10-15] MEDS: GRANISETRON 1 MG/1 ML VIAL IV SCH (09:37)
[2016-10-15] MEDS: cloNIDine 0.1 MG TABLET PO SCH ×2 (09:37→20:35)
[2016-10-15] MEDS: CIPROFLOXACIN 500 MG TABLET PO SCH ×2 (09:37→20:35)
[2016-10-15] MEDS: MULTIVITAMIN (CENTRUM) TABLET PO SCH (10:54)
[2016-10-15] MEDS: CYANOCOBALAMIN 500 MCG TABLET PO SCH (10:54)
[2016-10-15] MEDS: CHOLECALCIFEROL 1,000 UNIT TABLET PO SCH (10:54)
[2016-10-15] MEDS: POTASSIUM GLUCONATE 500 MG TABLET PO SCH ×2 (10:54→20:35)
[2016-10-15] MEDS: CETIRIZINE 10 MG TABLET PO SCH (10:54)
[2016-10-15] MEDS: PREGABALIN 50 MG CAPSULE PO SCH ×2 (10:54→20:34)
[2016-10-15] MEDS: DEXT 5% NACL 0.9% KCL 40 MEQ 40 MEQ/1,000 ML BAG IV SCH (10:55)
[2016-10-15] MEDS: ONDANSETRON ODT 4 MG TABLET PO PRN (19:23)
[2016-10-15] MEDS: TEMAZEPAM 7.5 MG CAPSULE PO PRN (20:34)
[2016-10-15] MEDS: MAGNESIUM OXIDE 400 MG TABLET PO SCH (20:35)
[2016-10-15] MEDS: amLODIPine 5 MG TABLET PO SCH (20:35)
[2016-10-16 05:16] LABS: Basophils # 0.1 10*3/uL (0.0-0.2); Basophils % 0.5 % (0.0-0.8); Eosinophils # 0.2 10*3/uL (0.0-0.87); Eosinophils % 0.9 % (0.00-10.9); Hematocrit 33.4 VOL% (35.7-47.0); Hemoglobin 11.2 GM/DL (12.0-16.0); Immature Granulocytes % 7.2 %; Immature Granulocytes Absolute 1.71 #; Lymphocytes # 5.4 10*3/uL (1.4-4.0); Lymphocytes % 22.7 % (21.3-54.2); Mean Corpuscular HGB Conc 33.5 GM/DL (32-36); Mean Corpuscular Hemoglobin 31 PG (27-34); Mean Corpuscular Volume 91.8 FL (87-102); Mean Platelet Volume 9.7 FL (9.6-12.0); Monocytes # 1.4 10*3/uL (0.11-0.8); NRBC # 0.06 10*3/uL; Neutrophils # 14.8 10*3/uL (1.4-7.4); Neutrophils % 62.7 % (38.7-73.9); Platelet Count 205 T/CUMM (130-400); Red Blood Count 3.64 MC/CUMM (3.8-5.5); Red Cell Distribution Width 15.5 % (9.3-17.3); White Blood Count 23.7 T/CUMM (4-12)
[2016-10-16 05:47] LABS: Albumin 2.3 G/DL (3.4-5.0); Bilirubin,Total 1.7 MG/DL (0.2-1.0); Calcium 8.7 MG/DL (8.5-10.1); Osmolality,Calculated 275.4 MOS/KG (273-304); Potassium 3.9 MMOL/L (3.5-5.1); Total Protein 4.7 G/DL (6.4-8.3)
[2016-10-16 05:55] LABS: Band Neutrophils 6 % (0-10); Lymphocytes 17 % (20-55); Microcytosis Slight; Nucleated Red Blood Cells 1 (0-5); Platelet Estimate Normal; Promyelocytes 1 %; Segmented Neutrophils 71 % (50-85); Total Cells Counted 100
[2016-10-16] MEDS: SUCRALFATE 1 GM/10 ML UDCUP PO SCH ×4 (06:46→20:31)
[2016-10-16] MEDS: METOCLOPRAMIDE 10 MG/10 ML UDCUP PO SCH ×4 (06:46→20:33)
[2016-10-16] MEDS: PANTOPRAZOLE 40 MG TABLET PO SCH ×2 (06:46→18:24)
--- NOTE | 2016-10-16 06:49 | Oncology Progress Note ---
Oncology Subjective PN Interval history: Ms. Francisco has recurrent metastatic adenocarcinoma of the colon. She is post chemotherapy. Her last course of chemotherapy was interrupted because she refused to complete it until I talk with her. She completed the chemotherapy on October 05. Lab work today includes a white cell count of 23,700 with a hemoglobin of 11.2 and a platelet count of 205,000. The CMP is normal except for a total bilirubin of 1.7 which I really doubt since the patient's liver enzymes are satisfactory. The patient has a low serum albumin reflecting malnutrition. Cytologies were ordered on the paracentesis specimen. They are class II. She is still not eating well. Her IV has been discontinued. My plan is to keep her through the weekend, monitoring blood work and monitor her strength and I will proceed with course #2 of Folfiri Wednesday or possibly even started Wednesday with the okay of Dr. Gu. On physical examination she is still emaciated and cachectic and malnourished. Her oral mucosa is normal. Her lungs are clear and her heart sounds are normal. Her respirations are unlabored. She has no abdominal distention or tenderness and I cannot palpate any ascites. My plan is to proceed with chemotherapy Wednesday and probably discharge her Wednesday or Wednesday if she remains stable. Lab work today includes a white cell count 23,700 with an absolute neutrophil count of 14,800 and a hemoglobin of 11.2. Her platelet count is 205,000. Exam - Constitutional Vitals: Period Temp Pulse Resp BP Sys/Carrion Pulse Ox Last 24 Hr 96.6 F-99.8 F 83-116 16-20 99-133/62-82 95-99 Results - Labs CBC & BMP: 10/16/16 04:56 10/16/16 04:56
[2016-10-16] MEDS: CHOLECALCIFEROL 1,000 UNIT TABLET PO SCH (09:23)
[2016-10-16] MEDS: CETIRIZINE 10 MG TABLET PO SCH (09:23)
[2016-10-16] MEDS: POTASSIUM GLUCONATE 500 MG TABLET PO SCH ×2 (09:23→20:30)
[2016-10-16] MEDS: PREGABALIN 50 MG CAPSULE PO SCH ×2 (09:23→20:29)
[2016-10-16] MEDS: MULTIVITAMIN (CENTRUM) TABLET PO SCH (09:23)
[2016-10-16] MEDS: CIPROFLOXACIN 500 MG TABLET PO SCH ×2 (09:24→20:30)
[2016-10-16] MEDS: CYANOCOBALAMIN 500 MCG TABLET PO SCH (09:24)
[2016-10-16] MEDS: DEXAMETHASONE 4 MG/1 ML VIAL IV SCH (09:24)
[2016-10-16] MEDS: cloNIDine 0.1 MG TABLET PO SCH ×2 (09:24→20:29)
[2016-10-16] MEDS: GRANISETRON 1 MG/1 ML VIAL IV SCH (09:24)
[2016-10-16] MEDS: amLODIPine 5 MG TABLET PO SCH (20:29)
[2016-10-16] MEDS: MAGNESIUM OXIDE 400 MG TABLET PO SCH (20:30)
[2016-10-16] MEDS: TEMAZEPAM 7.5 MG CAPSULE PO PRN (20:32)
[2016-10-17 05:27] LABS: Basophils # 0.1 10*3/uL (0.0-0.2); Basophils % 0.5 % (0.0-0.8); Eosinophils # 0.2 10*3/uL (0.0-0.87); Eosinophils % 1.3 % (0.00-10.9); Hematocrit 32.4 VOL% (35.7-47.0); Hemoglobin 10.7 GM/DL (12.0-16.0); Immature Granulocytes % 9.6 %; Immature Granulocytes Absolute 1.41 #; Lymphocytes # 4.7 10*3/uL (1.4-4.0); Mean Corpuscular Hemoglobin 30 PG (27-34); Mean Platelet Volume 9.3 FL (9.6-12.0); Monocytes % 6.9 % (1.7-12.7); NRBC # 0.04 10*3/uL; Neutrophils # 7.4 10*3/uL (1.4-7.4); Neutrophils % 49.7 % (38.7-73.9); Platelet Count 222 T/CUMM (130-400); Red Blood Count 3.56 MC/CUMM (3.8-5.5); Red Cell Distribution Width 15.5 % (9.3-17.3); White Blood Count 14.8 T/CUMM (4-12)
[2016-10-17] MEDS: PANTOPRAZOLE 40 MG TABLET PO SCH ×2 (06:22→18:04)
[2016-10-17 06:44] LABS: Alanine Aminotransferase 46 U/L (13-56); Albumin 2.3 G/DL (3.4-5.0); Alkaline Phosphatase 105 U/L (45-117); Aspartate Amino Transferase 42 U/L (0-37); Bilirubin,Total < 0.39 MG/DL (0.2-1.0); Blood Urea Nitrogen 16 MG/DL (7-18); Calcium 8.7 MG/DL (8.5-10.1); Glucose 97 MG/DL (74-106); Osmolality,Calculated 281.3 MOS/KG (273-304); Potassium 3.6 MMOL/L (3.5-5.1); Sodium 141 MMOL/L (136-145); Total Protein 4.7 G/DL (6.4-8.3)
[2016-10-17] MEDS: METOCLOPRAMIDE 10 MG/10 ML UDCUP PO SCH ×4 (07:42→21:42)
[2016-10-17] MEDS: SUCRALFATE 1 GM/10 ML UDCUP PO SCH ×4 (07:42→21:41)
[2016-10-17 08:07] LABS: Band Neutrophils 12 % (0-10); Hypochromasia 1+; Lymphocytes 25 % (20-55); Macrocytosis 1+; Myelocytes 1 %; Platelet Estimate Adequate; Polychromasia Slight; Promyelocytes 1 %; Segmented Neutrophils 56 % (50-85); Spherocytes Slight; Total Cells Counted 100
[2016-10-17] MEDS: GRANISETRON 1 MG/1 ML VIAL IV SCH (09:01)
[2016-10-17] MEDS: DEXAMETHASONE 4 MG/1 ML VIAL IV SCH (09:08)
[2016-10-17] MEDS: POTASSIUM GLUCONATE 500 MG TABLET PO SCH ×2 (09:08→21:43)
[2016-10-17] MEDS: CIPROFLOXACIN 500 MG TABLET PO SCH ×2 (09:08→21:41)
[2016-10-17] MEDS: MULTIVITAMIN (CENTRUM) TABLET PO SCH (09:08)
[2016-10-17] MEDS: CETIRIZINE 10 MG TABLET PO SCH (09:08)
[2016-10-17] MEDS: CYANOCOBALAMIN 500 MCG TABLET PO SCH (09:08)
[2016-10-17] MEDS: CHOLECALCIFEROL 1,000 UNIT TABLET PO SCH (09:08)
[2016-10-17] MEDS: cloNIDine 0.1 MG TABLET PO SCH ×2 (09:09→21:44)
--- NOTE | 2016-10-17 10:49 | Oncology Progress Note ---
Assessment and Plan (1) Esophagitis Status: Acute Assessment and plan: continue with PPI BID, carafate, and reglan - clinically improved - pathology negative malignancy Current Visit: Yes (2) Colon adenocarcinoma Status: Acute Assessment and plan: - s/p paracentesis with cytology benign - anticipate re-initiation of chemotherapy in near future now that acute N/V/D/ dysphagia improved Current Visit: Yes (3) Hypertension Status: Acute Assessment and plan: - continue with norvasc and clonidine Current Visit: Yes Oncology Subjective PN Interval history: 76 year old female with PMHx of colon cancer admitted for dysphagia as well as nausea and vomiting. During hospitalization patient unable to tolerate re- initiation of chemotherapy secondary to N/V/D. She underwent a EGD with findings consistent with severe esophagitis as well as a paracentesis with symptomatic relief of abdominal pressure and cytology negative. Patient anticipating re-initiation of chemotherapy in near future. Today patient feels well. States nausea resolved and dysphagia much improved. She is able to tolerate fluids and solids. No fevers. No new pains. Exam - Constitutional Vitals: Period Temp Pulse Resp BP Sys/Carrion Pulse Ox Last 24 Hr 96.0 F-98.6 F 86-109 18-20 97-114/54-80 93-96 General appearance: under weight - Eye Eye Exam: Present: EOMI - Respiratory Respiratory exam: Present: CTAB - Cardiovascular Cardiovascular exam: Present: RRR - GI/Abdominal GI/Abdominal exam: Present: ascites, distended (less distended than prior ), tenderness, soft - Extremities Exam Extremities exam: Absent: edema - Neurological Exam Neurological exam: Present: alert, oriented X3 - Skin Skin exam: Present: warm Results - Labs CBC & BMP: 10/17/16 04:00 10/17/16 04:00
[2016-10-17] MEDS ORDERED: traMADol 50 MG TABLET PO PRN (21:13)
[2016-10-17] MEDS: PREGABALIN 50 MG CAPSULE PO SCH (21:40)
[2016-10-17] MEDS: TEMAZEPAM 7.5 MG CAPSULE PO PRN (21:41)
[2016-10-17] MEDS: MAGNESIUM OXIDE 400 MG TABLET PO SCH (21:43)
[2016-10-17] MEDS: amLODIPine 5 MG TABLET PO SCH (21:43)
[2016-10-18 05:33] LABS: Basophils # 0.1 10*3/uL (0.0-0.2); Basophils % 0.4 % (0.0-0.8); Eosinophils # 0.2 10*3/uL (0.0-0.87); Eosinophils % 1.1 % (0.00-10.9); Hematocrit 33.9 VOL% (35.7-47.0); Hemoglobin 11.2 GM/DL (12.0-16.0); Immature Granulocytes Absolute 1.27 #; Lymphocytes # 4.6 10*3/uL (1.4-4.0); Lymphocytes % 32.3 % (21.3-54.2); Mean Corpuscular Hemoglobin 30 PG (27-34); Mean Corpuscular Volume 91.9 FL (87-102); Monocytes # 1.1 10*3/uL (0.11-0.8); Monocytes % 7.5 % (1.7-12.7); Neutrophils % 49.7 % (38.7-73.9); Platelet Count 231 T/CUMM (130-400); Red Blood Count 3.69 MC/CUMM (3.8-5.5); Red Cell Distribution Width 15.9 % (9.3-17.3); White Blood Count 14.1 T/CUMM (4-12)
[2016-10-18 05:45] LABS: Albumin 2.4 G/DL (3.4-5.0); Calcium 8.5 MG/DL (8.5-10.1); Osmolality,Calculated 281.3 MOS/KG (273-304); Potassium 3.4 MMOL/L (3.5-5.1); Total Protein 4.8 G/DL (6.4-8.3)
[2016-10-18 06:52] LABS: Band Neutrophils 5 % (0-10); Eosinophils 2 % (0-10); Lymphocytes 30 % (20-55); Metamyelocytes 1 %; Myelocytes 5 %; Segmented Neutrophils 55 % (50-85); Total Cells Counted 100
[2016-10-18 06:53] LABS: Anisocytosis 1+; Hypochromasia 1+
[2016-10-18 06:54] LABS: Platelet Estimate Normal
[2016-10-18] MEDS: PANTOPRAZOLE 40 MG TABLET PO SCH ×2 (06:55→18:03)
[2016-10-18] MEDS: SUCRALFATE 1 GM/10 ML UDCUP PO SCH ×4 (07:57→20:15)
[2016-10-18] MEDS: METOCLOPRAMIDE 10 MG/10 ML UDCUP PO SCH ×4 (07:57→20:16)
[2016-10-18] MEDS ORDERED: HEPARIN LOCK FLUSH 500 UNIT/5 ML SYRINGE IV ONE (09:13)
[2016-10-18] MEDS: CYANOCOBALAMIN 500 MCG TABLET PO SCH (09:13)
[2016-10-18] MEDS: CHOLECALCIFEROL 1,000 UNIT TABLET PO SCH (09:13)
[2016-10-18] MEDS: MULTIVITAMIN (CENTRUM) TABLET PO SCH (09:14)
[2016-10-18] MEDS: CETIRIZINE 10 MG TABLET PO SCH (09:14)
[2016-10-18] MEDS: CIPROFLOXACIN 500 MG TABLET PO SCH ×2 (09:14→20:14)
[2016-10-18] MEDS: POTASSIUM GLUCONATE 500 MG TABLET PO SCH ×2 (09:14→20:17)
[2016-10-18] MEDS: PREGABALIN 50 MG CAPSULE PO SCH ×2 (09:14→20:14)
[2016-10-18] MEDS: DEXAMETHASONE 4 MG/1 ML VIAL IV SCH (09:14)
[2016-10-18] MEDS: GRANISETRON 1 MG/1 ML VIAL IV SCH (09:14)
--- NOTE | 2016-10-18 09:14 | Oncology Progress Note ---
Assessment and Plan (1) Esophagitis Status: Acute Assessment and plan: continue with PPI BID, carafate, and reglan - clinically improved. tolerating PO intake well - pathology negative malignancy Current Visit: Yes (2) Colon adenocarcinoma Status: Acute Assessment and plan: - s/p paracentesis with cytology benign - clinically suspected to have progression of disease with worsening symptoms and ascites - anticipate re-initiation of chemotherapy in near future now that acute N/V/D/ dysphagia improved Current Visit: Yes (3) Hypertension Status: Acute Assessment and plan: - continue with norvasc and clonidine Current Visit: Yes Oncology Subjective PN Interval history: 76 year old female with hx of colon cancer with associated ascites admitted for intractable N/V and dysphagia. Found on EGD to have severe esophagitis now improved on PPI and carafate. Ascites tapped with cytology negative for malignancy. Given progression of symptoms and ascites felt clinically to have POD with plans in near future to re-initiate chemotherapy. Today patient feels well. Sitting at bedside eating breakfast. Tolerating PO well with no reflux, no N/V. Constipation improved. No abdominal pain. No fevers. No new pains. Exam - Constitutional Vitals: Period Temp Pulse Resp BP Sys/Carrion Pulse Ox Last 24 Hr 97.8 F-99.1 F 84-107 16-20 104-122/70-77 93-95 General appearance: no acute distress, under weight - Eye Eye Exam: Present: EOMI - Respiratory Respiratory exam: Present: CTAB - Cardiovascular Cardiovascular exam: Present: RRR - GI/Abdominal GI/Abdominal exam: Present: ascites, distended, soft. Absent: mass, tenderness - Extremities Exam Extremities exam: Absent: edema - Neurological Exam Neurological exam: Present: alert, oriented X3 - Psychiatric Psychiatric exam: Present: normal affect - Skin Skin exam: Present: warm Results - Labs CBC & BMP: 10/18/16 04:00 10/18/16 04:00
[2016-10-18] MEDS: cloNIDine 0.1 MG TABLET PO SCH ×2 (09:15→20:15)
[2016-10-18] MEDS: amLODIPine 5 MG TABLET PO SCH (20:14)
[2016-10-18] MEDS: TEMAZEPAM 7.5 MG CAPSULE PO PRN (20:14)
[2016-10-18] MEDS: MAGNESIUM OXIDE 400 MG TABLET PO SCH (20:17)
[2016-10-19 05:02] LABS: Basophils # 0.1 10*3/uL (0.0-0.2); Basophils % 0.5 % (0.0-0.8); Eosinophils # 0.2 10*3/uL (0.0-0.87); Eosinophils % 1.6 % (0.00-10.9); Hematocrit 32.3 VOL% (35.7-47.0); Hemoglobin 10.7 GM/DL (12.0-16.0); Immature Granulocytes % 9.7 %; Immature Granulocytes Absolute 1.28 #; Lymphocytes # 4.8 10*3/uL (1.4-4.0); Lymphocytes % 36.2 % (21.3-54.2); Mean Corpuscular HGB Conc 33.1 GM/DL (32-36); Mean Corpuscular Hemoglobin 30 PG (27-34); Mean Corpuscular Volume 91.5 FL (87-102); Monocytes # 1.1 10*3/uL (0.11-0.8); Monocytes % 8.3 % (1.7-12.7); Neutrophils # 5.8 10*3/uL (1.4-7.4); Neutrophils % 43.7 % (38.7-73.9); Platelet Count 229 T/CUMM (130-400); Red Blood Count 3.53 MC/CUMM (3.8-5.5); Red Cell Distribution Width 16.3 % (9.3-17.3); White Blood Count 13.2 T/CUMM (4-12)
[2016-10-19 05:46] LABS: Band Neutrophils 4 % (0-10); Eosinophils 2 % (0-10); Hypochromasia 1+; Lymphocytes 31 % (20-55); Ovalocytes Slight; Segmented Neutrophils 53 % (50-85); Total Cells Counted 100
[2016-10-19 05:47] LABS: Platelet Estimate Normal
[2016-10-19 06:14] LABS: Alanine Aminotransferase 42 U/L (13-56); Albumin 2.3 G/DL (3.4-5.0); Alkaline Phosphatase 104 U/L (45-117); Aspartate Amino Transferase 31 U/L (0-37); Bilirubin,Total < 0.39 MG/DL (0.2-1.0); Blood Urea Nitrogen 19 MG/DL (7-18); Calcium 8.4 MG/DL (8.5-10.1); Glucose 90 MG/DL (74-106); Potassium 3.3 MMOL/L (3.5-5.1); Sodium 143 MMOL/L (136-145); Total Protein 4.9 G/DL (6.4-8.3)
[2016-10-19] MEDS: PANTOPRAZOLE 40 MG TABLET PO SCH ×2 (06:36→20:34)
--- NOTE | 2016-10-19 06:54 | Oncology Progress Note ---
Oncology Subjective PN Interval history: Ms. Francisco remains hospitalized after being admitted with partial bowel obstruction due to recurrent progressive adenocarcinoma the colon. This was her second recurrence and progression. It is my intention to proceed with another course of palliative chemotherapy using dose reduced Folfiri starting today, possibly with discharge tomorrow depending on how stable she is.I have been treating her for stage IV colon cancer since shortly after she was diagnosed as having adenocarcinoma of the colon March 07, 2013. This is her second episode of recurrence.She was initially treated with FOLFOX and Folfiri along with Avastin. She received 3 courses of FOLFOX followed by 9 courses of Folfiri plus Avastin and then was switched to Avastin as a single agent with the last of this series of chemotherapy treatments being October 16, 2013. She continued Avastin as a single agent until she developed progression. She had evidence of progressive disease that took some time to manifest and was started back on chemotherapy again consisting of 3 courses of FOLFOX beginning in November 2015 and switching to Folfiri 4 5 courses that she finished February. This time, which was the third time, she began developing symptoms of recurrence shortly before this admission. She had some bowel distention and discomfort about a week prior to this actual hospitalization. We will start chemotherapy today and it will include: Camptosar 250 mg IV over 90 minutes Leucovorin 600 mg IV 5-FU 750 mg IV push Then 5-FU 1100 mg IV over 24 hours. She is improved significantly since admission. She is having no nausea or vomiting. Her abdomen is flat and nontender and I cannot palpate any ascites. Her lungs are clear with normal breath sounds in her chest moves symmetrically with respiration. Her heart rhythm is regular without murmur, gallop or rub. There is no jugular venous distention, clubbing or cyanosis. She is oriented to time, place, person and situation with normal mood and affect. Cranial nerves II through XII are intact. She has no focal neurologic deficit. She is chronically ill-appearing and generally extremely thin. Exam - Constitutional Vitals: Period Temp Pulse Resp BP Sys/Carroin Pulse Ox Last 24 Hr 97.1 F-98.9 F 79-114 16-20 120-151/72-83 94-96 Results - Labs CBC & BMP: 10/19/16 03:27 10/19/16 03:27
[2016-10-19] MEDS ORDERED: IRINOTECAN 250 MG in DEXTROSE 5% 250 ML IV ONE (08:00)
[2016-10-19] MEDS ORDERED: FLUOROURACIL IV ONE (08:00)
[2016-10-19] MEDS ORDERED: ATROPINE 0.4 MG/1 ML VIAL IV ONE (08:00)
[2016-10-19] MEDS ORDERED: LEUCOVORIN INJ 600 MG in DEXTROSE 5% 250 ML IV ONE (08:00)
[2016-10-19] MEDS ORDERED: SODIUM CHLORIDE 0.9% IV SCH (08:00)
[2016-10-19] MEDS ORDERED: FLUOROURACIL IV SCH (08:00)
[2016-10-19] MEDS ORDERED: DEXAMETHASONE 4 MG/1 ML VIAL IV SCH (09:00)
[2016-10-19] MEDS ORDERED: GRANISETRON 1 MG/1 ML VIAL IV SCH (09:00)
[2016-10-19] MEDS: CIPROFLOXACIN 500 MG TABLET PO SCH ×2 (09:30→20:34)
[2016-10-19] MEDS: POTASSIUM GLUCONATE 500 MG TABLET PO SCH ×2 (09:30→20:34)
[2016-10-19] MEDS: SUCRALFATE 1 GM/10 ML UDCUP PO SCH ×4 (09:30→20:34)
[2016-10-19] MEDS: METOCLOPRAMIDE 10 MG/10 ML UDCUP PO SCH ×4 (09:32→20:34)
[2016-10-19] MEDS: DEXAMETHASONE 4 MG/1 ML VIAL IV SCH (09:38)
[2016-10-19] MEDS: cloNIDine 0.1 MG TABLET PO SCH ×2 (09:39→20:35)
[2016-10-19] MEDS: GRANISETRON 1 MG/1 ML VIAL IV SCH (09:39)
[2016-10-19] MEDS: MULTIVITAMIN (CENTRUM) TABLET PO SCH (09:39)
[2016-10-19] MEDS: CHOLECALCIFEROL 1,000 UNIT TABLET PO SCH (09:40)
[2016-10-19] MEDS: PREGABALIN 50 MG CAPSULE PO SCH ×2 (09:40→20:34)
[2016-10-19] MEDS: CETIRIZINE 10 MG TABLET PO SCH (09:40)
[2016-10-19] MEDS: CYANOCOBALAMIN 500 MCG TABLET PO SCH (09:40)
[2016-10-19] MEDS: ONDANSETRON ODT 4 MG TABLET PO PRN (12:43)
[2016-10-19] MEDS: ALPRAZolam 0.25 MG TABLET PO PRN (18:19)
[2016-10-19] MEDS: amLODIPine 5 MG TABLET PO SCH (20:34)
[2016-10-19] MEDS: TEMAZEPAM 7.5 MG CAPSULE PO PRN (20:34)
[2016-10-19] MEDS: MAGNESIUM OXIDE 400 MG TABLET PO SCH (20:34)
[2016-10-20] MEDS: ALPRAZolam 0.25 MG TABLET PO PRN ×2 (04:30→11:20)
[2016-10-20 05:51] LABS: Basophils % 0.2 % (0.0-0.8); Eosinophils # 0.1 10*3/uL (0.0-0.87); Hemoglobin 10.2 GM/DL (12.0-16.0); Immature Granulocytes % 3.3 %; Immature Granulocytes Absolute 0.31 #; Lymphocytes % 32.3 % (21.3-54.2); Mean Corpuscular HGB Conc 32.9 GM/DL (32-36); Mean Corpuscular Hemoglobin 30 PG (27-34); Mean Platelet Volume 9.3 FL (9.6-12.0); Monocytes # 0.8 10*3/uL (0.11-0.8); Monocytes % 8.6 % (1.7-12.7); NRBC # 0.02 10*3/uL; Neutrophils # 5.1 10*3/uL (1.4-7.4); Neutrophils % 54.6 % (38.7-73.9); Platelet Count 211 T/CUMM (130-400); Red Blood Count 3.37 MC/CUMM (3.8-5.5); Red Cell Distribution Width 16.2 % (9.3-17.3); White Blood Count 9.3 T/CUMM (4-12)
[2016-10-20 06:12] LABS: Alanine Aminotransferase 42 U/L (13-56); Albumin 2.2 G/DL (3.4-5.0); Alkaline Phosphatase 97 U/L (45-117); Aspartate Amino Transferase 34 U/L (0-37); Bilirubin,Total < 0.39 MG/DL (0.2-1.0); Blood Urea Nitrogen 21 MG/DL (7-18); Calcium 8.1 MG/DL (8.5-10.1); Glucose 85 MG/DL (74-106); Potassium 3.5 MMOL/L (3.5-5.1); Sodium 143 MMOL/L (136-145); Total Protein 4.6 G/DL (6.4-8.3)
[2016-10-20] MEDS: SUCRALFATE 1 GM/10 ML UDCUP PO SCH ×2 (06:17→06:35)
[2016-10-20] MEDS: METOCLOPRAMIDE 10 MG/10 ML UDCUP PO SCH ×2 (06:17→06:35)
[2016-10-20] MEDS: PANTOPRAZOLE 40 MG TABLET PO SCH (06:17)
--- NOTE | 2016-10-20 06:44 | Discharge Summary ---
Hospital Course - Hospital Course Hospital Course: Diagnoses: #1: Partial bowel obstruction secondary to recurrent colon cancer #2: Ascites secondary to colon cancer recurrence #3: Metastatic adenocarcinoma recurring at least once previously #4: Anemia secondary to colon cancer and chemotherapy #5: Leukopenia secondary to chemotherapy and colon cancer #6: Emaciation, cachexia and malnutrition #7: Erosive esophagitis Ms. 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 She has been treated on more than one occasion because of progression of disease. She was initially treated with FOLFOX and Folfiri along with Avastin. She received 3 courses of FOLFOX followed by 9 courses of Folfiri plus Avastin and then was switched to Avastin as a single agent with the last of this series of chemotherapy treatments being October 16, 2013. She continued Avastin as a single agent until she developed progression. She had evidence of progressive disease that took some time to manifest and started back on chemotherapy again consisting of 3 courses of FOLFOX beginning in November 2015 and switching to Folfiri 4 5 courses that she finished February. I have been following her since that time and when I saw her in my office earlier this week she was having some nausea and increasing abdominal distention and anorexia and a sense of fullness. At the time of that examination, I was concerned that she had progression of disease again. She had recently had a CT of the abdomen and pelvis that was done September 17, 2016 and compared to the most recent one of June 18, 2015. It suggested that she had progression of disease again. She received chemotherapy twice during this hospital stay. She initially received Camptosar 250 mg IV on October 03, 2016 followed by leucovorin 600 mg IV and 5 fluorouracil 750 mg IV slow push and approximately 500 mg of 5-FU there was infused over about 12 hours.. This was supposed to be followed by 5-FU 1000 mg IV over 2 days but that was disrupted by the patient refusing to finish it up, but she only took half of it before she insisted on having the first bag of infusion 5-FU discontinued. When I returned on October 05, I gave the patient leucovorin 400 mg IV followed by 5-FU 1200 mg IV over 22 hours. The second course of chemotherapy consisted of Camptosar 250 mg IV on October 19 followed by leucovorin 600 mg IV and 5-FU 750mg IV push then 5-FU 1100 mg IV over 22 hours She is actually finishing the 5-FU infusion today. She has not had a bowel movement but she insists that she is fine to go home and she can manage this at home. The only new medications that I am sending her home on our Reglan 5 mg before meals and at bedtime she is instructed to take Mylanta as needed. She has Compazine for nausea.. At some point my plan is to reconsult Dr. Cevallos to consider repeat colonoscopy. He saw Ms. Francisco in consultation during this hospitalization and establish that she had erosive esophagitis that developed following her first round of Folfiri. - Time spent with patient Time with patient DS: Greater than 30 minutes Discharge Plan - Discharge Data Disposition: Disch To Home/Self Care Condition at Discharge: Guarded Discharge Diet: advance to your usual diet Activity: resume usual activities as tolerated Hygiene: no restrictions Weight Bearing at Discharge: full weight bearing Driving: no restrictions Contact your physician if you experience:: fever over 101 - Discharge Medications New Metoclopramide Liquid [Reglan Liquid] 5 mg PO ACHS PRN #120 bottle PRN Reason: Nausea Continue Cetirizine Tab [ZyrTEC Tab] 10 mg PO QAM cloNIDine TAB [Catapres Tab] 0.1 mg PO BID Lisinopril 40 mg PO QAM Magnesium Oxide 400 mg PO DAILY Metoprolol Succinate 100 mg PO BID Pregabalin [Lyrica] 50 mg PO BID Cyanocobalamin (Vitamin B-12) [Vitamin B-12] 1,000 mcg PO DAILY Esomeprazole Magnesium [Nexium] 20 mg PO DAILY Folic Acid/Mv,Iron,Min [One Daily For Women Tablet] 1 each PO DAILY Gluc/Javier-MSM#1/C/Anil/Mitchell/Bor [Osteo Bi-Flex Caplet] 1 each PO DAILY Ondansetron Odt Tab [Zofran Odt] 4 mg PO Q8H PRN PRN Reason: Nausea Polyethylene Glycol Powder [Miralax] 17 gm PO DAILY PRN PRN Reason: Constipation Potassium 99 mg PO BID amLODIPine [Norvasc] 5 mg PO BEDTIME Cholecalciferol (Vitamin D3) [Vitamin D3] 5,000 unit PO DAILY Dicyclomine Cap/Tab [Bentyl Cap/Tab] 20 mg PO QID PRN PRN Reason: Reflux Loperamide Cap [Imodium Cap] 2 mg PO Q4HR PRN PRN Reason: Diarrhea Prochlorperazine Tab [Compazine Tab] 10 mg PO Q4H PRN PRN Reason: Nausea - Follow Up or Referral - Forms/Instructions Additional Discharge Instructions: Discharge today after chemotherapy is complete. Appointment to see me next Wednesday or with CBC, CMP and LDH. Exam - Constitutional Vitals: Period Temp Pulse Resp BP Sys/Carrion Pulse Ox Last 24 Hr 96.1 F-98.4 F 74-88 17-20 108-133/65-78 95-99 Discharge Results Procedures and tests throughout hospitalization: Pending Orders 10/08/16 08:36 Cytology Request Routine 10/08/16 14:30 C. Diff Toxins A & B Routine 10/21/16 04:00 Comp Blood Count Auto Diff IN AM Comprehensive Metabolic Panel IN AM LDH [Lactate Dehydrogenase] IN AM 10/22/16 04:00 Comp Blood Count Auto Diff IN AM Comprehensive Metabolic Panel IN AM Labs on day of discharge: Labs from last 24 hours 10/20/16 10/20/16 04:00 04:00 WBC 9.3 RBC 3.37 L Hgb 10.2 L Hct 31.0 L MCV 92.0 MCH 30 MCHC 32.9 RDW 16.2 Plt Count 211 MPV 9.3 L Neut % (Auto) 54.6 Lymph % (Auto) 32.3 [place] % (Auto) 8.6 Eos % (Auto) 1.0 Baso % (Auto) 0.2 Neut # (Auto) 5.1 Lymph # (Auto) 3.0 [place] # (Auto) 0.8 Eos # (Auto) 0.1 Baso # (Auto) 0.0 Immature Gran % 3.3 Nucleated RBC % 0.2 Immature Gran # 0.31 Nucleated RBCs # 0.02 Sodium 143 Potassium 3.5 Chloride 105 Carbon Dioxide 31 Anion Gap 10.5 BUN 21 H Creatinine 0.60 GFR Calculation 80 BUN/Creatinine Ratio 35.00 H Glucose 85 Calculated Osmolality 286.0 Calcium 8.1 L Total Bilirubin < 0.39 AST 34 ALT 42 Alkaline Phosphatase 97 Lactate Dehydrogenase 143 Total Protein 4.6 L Albumin 2.2 L Globulin 2.4 Albumin/Globulin Ratio 0.9 L DS: Provider Date of admission: 10/02/16 07:01 Primary care physician: Rafael Flores Attending physician on admission: Rafael Deshpande MD Consults: 10/02/16 11:12 Consult to Pharmacy [CONS] Routine Reason for Pharmacy Consult: Adjust Meds Renal Funct 10/07/16 19:30 Consult to Anesthesiology [CONS] Routine Consulting Provider: Reason for Anesthesiology: Pre-op Clearance Discharging clinician: Rafael Deshpande MD
[2016-10-20] MEDS ORDERED: BISACODYL 10 MG SUPP RECTAL ONE (08:40)
[2016-10-20] MEDS: GRANISETRON 1 MG/1 ML VIAL IV SCH (08:58)
[2016-10-20] MEDS: DEXAMETHASONE 4 MG/1 ML VIAL IV SCH (08:58)
[2016-10-20] MEDS ORDERED: HEPARIN LOCK FLUSH 500 UNIT/5 ML SYRINGE IV ONE (11:15)
[2016-10-20 12:30] VITALS: BP 116/70
== END 2016-10-20 11:30 | disposition home or self-care (01) | DRG 374 ==
LOC: N.4E 07:01
PROVIDERS: ADMIT Specialist; ATTEND Specialist